=== PATIENT | female | born 1970 | race Caucasian/White ===

== ENCOUNTER → 2018-07-25 15:34 | Outpatient (CLI) | payer OTHER, SELFPAY ==
--- NOTE | 2018-07-25 | DI.MG.S_ITS ---
BILATERAL DIGITAL SCREENING MAMMOGRAM 3D/2D WITH CAD: 07/25/2018 CLINICAL: Routine screening. Family history of breast cancer. Comparison is made to exams dated: 07/15/2017 mammogram, 07/11/2016 mammogram, and 07/09/2015 mammogram - [facility]. The tissue of both breasts is extremely dense, which lowers the sensitivity of mammography. Current study was also evaluated with a Computer Aided Detection (CAD) system. No significant masses, calcifications, or other findings are seen in either breast. There has been no significant interval change. IMPRESSION: NEGATIVE There is no mammographic evidence of malignancy. A 1 year screening mammogram is recommended. This exam was interpreted at Station ID: [id number]. NOTE: For mammograms, a report in lay terms will be sent to the patient. Approximately 15% of breast malignancies will not be visualized mammographically. In the management of a palpable breast mass, a negative mammogram must not discourage biopsy of a clinically suspicious lesion. Electronically Signed By: Lacey garcia/dony:07/25/2018 17:01:51 letter sent: Normal Exam ACR BI-RADS Category 1: Negative 3341F
== END ==
PROVIDERS: PCP Internal Medicine; Visit Provider Internal Medicine
DX: Z12.31 Encounter for screening mammogram for malignant neoplasm of breast (principal); Z80.3 Family history of malignant neoplasm of breast
CPT/HCPCS: 77063; 77067

== ENCOUNTER → 2019-12-28 08:58 | Outpatient (CLI) | payer OTHER, SELFPAY ==
--- NOTE | 2019-12-28 | DI.MG.S_ITS ---
BILATERAL DIGITAL SCREENING MAMMOGRAM 3D/2D WITH CAD: 12/28/2019 CLINICAL: Routine screening. Family history of breast cancer. Comparison is made to exams dated: 07/25/2018 mammogram, 07/15/2017 mammogram, and 07/11/2016 mammogram - [facility]. The tissue of both breasts is extremely dense, which lowers the sensitivity of mammography. Current study was also evaluated with a Computer Aided Detection (CAD) system. No significant masses, calcifications, or other findings are seen in either breast. There has been no significant interval change. IMPRESSION: NEGATIVE There is no mammographic evidence of malignancy. A 1 year screening mammogram is recommended. This exam was interpreted at Station ID: [id number]. NOTE: For mammograms, a report in lay terms will be sent to the patient. Approximately 15% of breast malignancies will not be visualized mammographically. In the management of a palpable breast mass, a negative mammogram must not discourage biopsy of a clinically suspicious lesion. Electronically Signed By: Damaso anglin/dony:12/30/2019 08:43:51 letter sent: Normal Exam ACR BI-RADS Category 1: Negative 3341F
== END ==
PROVIDERS: PCP Internal Medicine; Referring Provider Internal Medicine; Visit Provider Internal Medicine
DX: Z12.31 Encounter for screening mammogram for malignant neoplasm of breast (principal); Z80.3 Family history of malignant neoplasm of breast
CPT/HCPCS: 77063; 77067

== ENCOUNTER → 2021-01-02 08:22 | Outpatient (CLI) | payer OTHER, SELFPAY ==
--- NOTE | 2021-01-02 | DI.MG.S_ITS ---
BILATERAL DIGITAL SCREENING MAMMOGRAM 3D/2D WITH CAD: 01/02/2021 CLINICAL: Routine screening. Family history of breast cancer. Comparison is made to exams dated: 12/28/2019 mammogram, 07/25/2018 mammogram, and 07/15/2017 mammogram - [facility]. The tissue of both breasts is extremely dense, which lowers the sensitivity of mammography. Current study was also evaluated with a Computer Aided Detection (CAD) system. No significant masses, calcifications, or other findings are seen in either breast. There has been no significant interval change. IMPRESSION: NEGATIVE There is no mammographic evidence of malignancy. A 1 year screening mammogram is recommended. This exam was interpreted at Station ID: [id number]. NOTE: For mammograms, a report in lay terms will be sent to the patient. Approximately 15% of breast malignancies will not be visualized mammographically. In the management of a palpable breast mass, a negative mammogram must not discourage biopsy of a clinically suspicious lesion. Electronically Signed By: Aidan márquez/dony:01/04/2021 08:17:06 letter sent: Normal Exam ACR BI-RADS Category 1: Negative 3341F
== END ==
PROVIDERS: PCP Internal Medicine; Referring Provider Internal Medicine; Visit Provider Internal Medicine
DX: Z12.31 Encounter for screening mammogram for malignant neoplasm of breast (principal); Z80.3 Family history of malignant neoplasm of breast
CPT/HCPCS: 77063; 77067

== ENCOUNTER 2021-12-17 04:41 | Emergency (ER) | payer OTHER, SELFPAY ==
--- NOTE | 2021-12-17 04:39 | DI.CT.S_ITS ---
PROCEDURE: CT STROKE INDICATIONS: stroke with right sided weakness TECHNIQUE: Noncontrast 4.5 mm thick angled axial sections acquired from the foramen magnum to the vertex, with coronal reformats. For radiation dose reduction, the following was used: automated exposure control, adjustment of mA and/or kV according to patient size. COMPARISON: None. FINDINGS: Image quality: Excellent. CSF spaces: Basal cisterns are patent. No extra-axial fluid collections. Ventricles are normal in size and shape. Brain: Subtle hypodensity and loss of bautista white interface in the left temporal lobe involving the insula cortex. No midline shift. No intracranial masses or hemorrhage. Bautista-white matter interface is normal. Skull and face: Calvarium and visualized facial bones are intact, without suspicious lesions. Sinuses: Visualized sinuses and mastoids are clear. IMPRESSION: 1. Subtle hypodensity and loss of bautista-white interface in the left temporal lobe suspicious for acute/subacute infarct. No significant discrepancy with the shift supervisor rn radiology preliminary report. This study fulfills neurological imaging criteria for inclusion or exclusion of acute stroke therapies based on available published neurological imaging guidelines. Dictated by: Krish Boss M.D. on 12/17/2021 at 7:34 Approved by: Krish Boss M.D. on 12/17/2021 at 7:36
--- NOTE | 2021-12-17 04:39 | DI.CT.S_ITS ---
PROCEDURE: CT ANGIO HEAD AND NECK INDICATIONS: stroke with right sided weakness TECHNIQUE: After the administration of intravenous contrast, 1 mm thick sections acquired from the aortic arch through the [place] of [place]. Post-contrast 4.5 mm thick sections then re-acquired from the foramen magnum to the vertex. 3-dimensional qirdfsr-mqerhxyxj-bvcdnenkdh (MIP) and/or volume rendering reformats were acquired of the central intracranial vasculature and neck separately. For radiation dose reduction, the following was used: automated exposure control, adjustment of mA and/or kV according to patient size. COMPARISON: [facility], US, CAROTID ARTERY DOPPLER BILAT, 02/02/2016, 15:38. [facility], CT, CT STROKE, 12/17/2021, 4:51. FINDINGS: Image quality: Excellent. BRAIN: CSF spaces: Ventricles are normal in size and shape. Basal cisterns are patent. No extra-axial fluid collections. Brain: Hypodensity and loss of butterfield-white interface in the left temporoparietal lobe consistent with acute or subacute ischemia/infarct. No midline shift. No intracranial bleeds or masses. Skull and face: Calvarium and facial bones appear intact, without suspicious lesions. Orbits appear normal. Sinuses: Sinuses and mastoids are clear. HEAD CT ANGIOGRAPHY: Anterior circulation: Intracranial internal carotid arteries are normal in size and flow. The flow within the paired anterior cerebral arteries is normal and symmetric. There is segmental filling defect in the M1 segment of the left middle cerebral artery, suspicious for high-grade stenosis or occlusion. There is overall diminished flow in the left MCA distribution. The flow within the right middle cerebral artery is normal. The anterior communicating artery is seen. No aneurysms are seen. Posterior circulation: Visualized portions of the vertebral arteries demonstrate normal caliber, and join to form a normal appearing basilar artery. Flow within the posterior cerebral arteries is normal and symmetric. No aneurysms are seen. NECK CT ANGIOGRAPHY: Carotid system: The great vessels demonstrate a conventional anatomy as they arise from the aortic arch. The origins of the common carotid arteries appear patent. The common carotid arteries demonstrate normal caliber and courses. Calcified plaques at the carotid bifurcation regions bilaterally. 50% stenosis at origin of the left internal carotid artery; 30-40% stenosis at the right internal carotid artery origin. The internal carotid arteries demonstrate normal calibers and courses. Posterior circulation: The origins of the vertebral arteries both appear widely patent. The more superior extracranial portions of both vertebral arteries also demonstrate normal courses and calibers. They join to form a normal appearing basilar artery. Soft tissues: Visualized neck soft tissues demonstrate no suspicious abnormalities. Bones: No suspicious bony lesions. Moderate degenerative disc and facet disease in cervical spine. IMPRESSION: 1. Acute or subacute cerebral ischemia/infarct in the left temporoparietal lobe. 2. Suspect high-grade stenosis or occlusion of a short segment of left M1 segment of the middle cerebral artery. There is diminished flow in the left middle cerebral artery territory. 3. 50% stenosis at origin of the left internal carotid artery; 40% stenosis at origin of the right internal carotid artery origin. 4. No significant disease in cervical vertebral arteries. Any quantitative measurements of stenosis were performed using NASCET criteria. Dictated by: Krish Boss M.D. on 12/17/2021 at 7:38 Approved by: Krish Boss M.D. on 12/17/2021 at 8:46
--- NOTE | 2021-12-17 04:45 | ED.NEUROSD ---
HPI - Neuro Symptoms/Deficit General Chief Complaint: Neuro Symptoms/Deficit Stated Complaint: Stroke Time Seen by Provider: 12/17/21 04:44 History of Present Illness HPI Narrative: 51-year-old female nonsmoker with history of hypertension presents by EMS for evaluation of stroke-like symptoms. She was in her normal state of health when she went to bed at 9:30 p.m. and presents to the emergency department by EMS with significant neurologic symptoms. states he heard a thud and found her on the floor, unresponsive and unable to move her right side of her body. This was at about 4am today. She takes no blood thinners, is not a smoker does not drink alcohol. EMS reports blood sugar in the field 122 with stable vitals. She is activated as a code IR and taken directly to CT. Related Data Home Medications Medication Instructions Recorded Confirmed hydrochlorothiazide 25 mg tablet 25 mg PO DAILY 10/14/21 10/14/21 sertraline 150 mg capsule 75 mg PO DAILY 10/14/21 10/14/21 Previous Rx's Medication Instructions Recorded fluticasone propionate 50 1 spray intranasal QDAY ##1 08/07/17 mcg/actuation nasal spray,suspension (Flonase Allergy Relief) Allergies Allergy/AdvReac Type Severity Reaction Status Date / Time No Known Allergies Allergy Uncoded 10/14/21 10:13 Review of Systems Review of Systems ROS Unobtainable: Unobtainable due to mental status/LOC Patient History Medical History Herpes (~1994) Surgical History Melanoma (~2014) Family History Father Age: 78 Colon polyps Mother Cancer Hypertension Sister Age: 56 Breast cancer Sister Age: 46 Endometriosis Grandmother No problems noted. Social History Smoking Status: Current some day smoker Smoking Status: Current some day smoker (1 pk per day, for about 25 yrs) Exam Narrative Exam Narrative: GENERAL: [51] year old patient appears stated age. Well-developed patient, in obvious distress. GCS HEAD: Atraumatic. Normocephalic. EYES: Pupils equal round and reactive. Extraocular motions intact. No scleral icterus. No injection or drainage. ENT: Nose without bleeding, purulent drainage. Throat without erythema, tonsillar hypertrophy or exudate. Airway patent. NECK: Trachea midline. Non tender CARDIOVASCULAR: Regular rate and rhythm without murmurs, gallops, or rubs. RESPIRATORY: Clear to auscultation. Breath sounds equal bilaterally. No wheezes, rales, or rhonchi. GASTROINTESTINAL: Abdomen soft, non-tender, nondistended. EXTREMITIES: No edema or joint tenderness. BACK: Nontender without deformity or crepitance. No flank tenderness. NEURO: AOx3. SKIN: No rash or erythema of visible areas Initial Vital Signs Initial Vital Signs: Vital Signs Temperature 97.6 F 12/17/21 04:57 Pulse Rate 74 12/17/21 04:57 Respiratory Rate 16 12/17/21 04:57 Blood Pressure 153/97 H 12/17/21 04:57 Pulse Oximetry 99 12/17/21 04:57 Oxygen Delivery Method 12/17/21 04:57 Scores GCS Carroll coma scale eye opening: Spontaneous Carroll coma scale verbal response: Sounds [place] coma scale motor response: Localising Carroll coma scale total score: 11 NIH Stroke Scale Level of Conciousness: Not alert, but arousable by minor stim to obey, answer or respond Ask month/age: Answers neither question correctly, aphasic, stuporous, coma Open/close eyes, close hand: Performs neither task correctly Best gaze horizontal: Normal Visual rivero: No visual loss Facial palsy: Partial paralysis, total or near total paralysis of lower face Left arm drift: No drift for full 10 sec Right arm drift: Some effort against gravity, cannot maintain, drifts down to bed Left leg drift: No drift for full 5 sec Right leg drift: No effort against gravity Limb ataxia: Absent Sensory on face/arms/legs: Mild to moderate sensory loss, can tell touch Best language: Mute, global aphasia Dysarthria: Severe, unintelligible Extinction or inattention: Profound kp-inattention. Does not recognize own hand, one side Total NIH Stroke scale score: 20 Course Orders Ordered: ED Orders 12/17/21 04:[address] angio head and neck Stat Complete Blood Count AUTO DIFF Stat Comprehensive Metabolic Panel Stat Ethanol (ETOH) Stat Troponin & CK Cardiac Panel Stat Urine Drug Screen, Rapid Stat EKG-12 Lead Stat Sodium Chloride (Normal Saline 0.9%) 1,000 mls @ 150 mls/hr IV CONT JACQUIE Consultations Consultation #1: [id number] -discussion with stroke provider, Dr. Davis, she is in agreement that at this point patient meets criteria for CODE IR and is waiting to review CTA. 0515 - call back from Dr. Davis. She has reviewed imaging and notes findings consistent with large stroke and requests patient be sent to [facility] by air, but does state she may very well not receive intervention given significant changes already noted on imaging. I have relayed this to the patient's who understands and agrees with the plan. [facility] doing weather check and likely here in 27 minutes. Vital Signs Vital signs: Vital Signs - 8 hr 12/17/21 04:57 12/17/21 05:25 12/17/21 05:30 Temperature 97.6 F Pulse Rate 74 72 Respiratory Rate 16 17 Blood Pressure 153/97 H 139/92 H Pulse Oximetry 99 97 Oxygen Delivery Method Room Air 12/17/21 05:30 12/17/21 05:10 Temperature Pulse Rate 73 74 Respiratory Rate 17 20 Blood Pressure 142/90 H Pulse Oximetry 97 98 Oxygen Delivery Method MDM - Neuro Symptoms/Deficit Lab Data Result diagrams: 12/17/21 04:30 12/17/21 04:30 Labs: Lab Results 12/17/21 12/17/21 Range/Units 04:30 04:30 WBC 15.9 H (4.5-11.0) X10^3/uL RBC 4.52 (4.0-5.2) X10^6/uL Hgb 14.2 (12.0-16.0) g/dL Hct 41.3 (36-46) % MCV 91.3 (80-100) fL MCH 31.5 (26-34) PG MCHC 34.5 (30-36) % RDW 13.5 (11.6-14.8) % Plt Count 308 (150-400) X10^3/uL Neut % (Auto) 85.7 H (50-75) % Lymph % (Auto) 7.9 L (25-40) % Sunflower % (Auto) 5.0 (3-14) % Eos % (Auto) 0.4 L (2-4) % Baso % (Auto) 1.0 (0-2) % Neut # (Auto) 41157 H (7966-3279) /uL Lymph # (Auto) 1300 (7195-0231) /uL Sunflower # (Auto) 800 (0-900) /uL Eos # (Auto) 100 (0-450) /uL Baso # (Auto) 200 H (0-100) /uL Sodium 139 (137-145) mmol/L Potassium 4.0 (3.4-5.1) mmol/L Chloride 104 (98-107) mmol/L Carbon Dioxide 26 (22-32) mmol/L BUN 17 (7-17) mg/dL Creatinine 0.76 (0.52-1.04) mg/dL Estimated GFR > 60 (>60) mL/min BUN/Creatinine Ratio 22.4 H (6-22) Glucose 124 H (70-100) mg/dL Calcium 9.0 (8.4-10.2) mg/dL Total Bilirubin 0.4 (0.2-1.3) mg/dL AST 22 (14-36) IU/L ALT 14 (<35) IU/L Alkaline Phosphatase 72 (38-126) U/L Total Creatine Kinase 91 (30-135) U/L CK-MB (CK-2) TNP CK-MB (CK-2) Rel Index TNP Troponin I < 0.012 (0.01-0.034) ng/mL Total Protein 7.2 (6.3-8.2) g/dL Albumin 4.1 (3.5-5.0) g/dL Globulin 3.1 (1.7-4.1) g/dL Albumin/Globulin Ratio 1.3 (1.0-2.8) Ethyl Alcohol < 10 ( - 10) mg/dL Imaging Data CT scan - head: Radiologist's Impression: Blurring of the butterfield-white cortical interfaces with left temporoparietal regions compatible with ischemic infarct CTA - brain/neck: Radiologist's Impression: No significant stenosis or occlusion of the right or left internal carotid and vertebral arteries MDM Narrative Medical decision making narrative: 0530 - [facility] cannot [facility] due to weather. They are checking availability for fixed wing, but recommend we begin calls for ground transport. 0548 - [facility] sending fixed wing. Multiple calls to Ambulance, put on hold, no ability to speak to a person. At this time, decision made to activate [employer] for STAT transfer by ground from our ED to meet fixed [facility]. Stroke Core Measures Exclusion Criteria TPA in CVA: Symptom Onset >3 or 4.5 Hours Critical Care Time Critical Care Time Critical Care Time: Yes Total Critical Care Time: 30 Attestation: The high probability of a clinically significant, sudden or life threatening deterioration of the [NV] system(s) required my full and direct attention, intervention and personal management. The aggregate critical care time was [30] minutes. This time is in addition to time spent performing reported procedures but includes the following: [x] Data Review and interpretation [x] Patient assessment and monitoring of vital signs [x] Documentation [x] Medication orders and management Discharge Plan Departure Patient Disposition: [facility] Clinical Impression: Acute ischemic stroke Prescriptions: No Action fluticasone propionate [Flonase Allergy Relief] 50 mcg/actuation spray,suspension 1 spray Intranasal QDAY Qty: 1 5RF Rx Instructions: 1 spray each nostril once a day sertraline 150 mg capsule 75 mg PO DAILY hydrochlorothiazide 25 mg tablet 25 mg PO DAILY Referrals: Jannie José ARNP [Primary Care Provider] -
[2021-12-17 04:57] VITALS: BP 153/97; PULSE 74; RESP 16; TEMP 36.4; O2SAT 99; BMI 29.9
[2021-12-17 04:59] LABS: Add Manual Diff / Slide Review NO; Basophils Absolute Auto 200 /uL (0-100); Eosinophils Absolute Auto 100 /uL (0-450); Eosinophils Percent Auto 0.4 % (2-4); Hematocrit 41.3 % (36-46); Hemoglobin 14.2 g/dL (12.0-16.0); Lymphocytes Absolute Auto 1300 /uL (1100-4500); Lymphocytes Percent Auto 7.9 % (25-40); Mean Corpuscular HGB Conc 34.5 % (30-36); Mean Corpuscular Hemoglobin 31.5 PG (26-34); Mean Corpuscular Volume 91.3 fL (80-100); Monocytes Absolute Auto 800 /uL (0-900); Neutrophils Absolute Auto 13600 /uL (1500-7000); Neutrophils Percent Auto 85.7 % (50-75); Platelet Count 308 X10^3/uL (150-400); Red Blood Cell Count 4.52 X10^6/uL (4.0-5.2); Red Cell Distribution Width 13.5 % (11.6-14.8); White Blood Cell Count 15.9 X10^3/uL (4.5-11.0)
[2021-12-17 05:10] VITALS: BP 142/90; PULSE 74; RESP 20; O2SAT 98
[2021-12-17 05:12] LABS: Alanine Aminotransferase 14 IU/L (<35); Albumin 4.1 g/dL (3.5-5.0); Albumin Globulin Ratio 1.3 (1.0-2.8); Alkaline Phosphatase 72 U/L (38-126); Aspartate Aminotransferase 22 IU/L (14-36); BUN Creatinine Ratio 22.4 (6-22); Bilirubin Total 0.4 mg/dL (0.2-1.3); Blood Urea Nitrogen 17 mg/dL (7-17); Carbon Dioxide 26 mmol/L (22-32); Chloride 104 mmol/L (98-107); Creatine Kinase 91 U/L (30-135); Estimated Glomerular Filt Rate > 60 mL/min (>60); Ethanol (ETOH) < 10 mg/dL; Globulin 3.1 g/dL (1.7-4.1); Glucose 124 mg/dL (70-100); HEMOLYSIS 32 (0-50); Sodium 139 mmol/L (137-145); Total Protein 7.2 g/dL (6.3-8.2)
[2021-12-17 05:23] LABS: Troponin I < 0.012 ng/mL (0.01-0.034)
[2021-12-17 05:25] VITALS: PULSE 72; RESP 17; O2SAT 97
[2021-12-17 05:30] VITALS: BP 139/92; PULSE 73; RESP 17; O2SAT 97
[2021-12-17 05:59] VITALS: PULSE 75; RESP 30; O2SAT 93
[2021-12-17 06:00] VITALS: BP 152/95
[2021-12-17 06:39] LABS: COVID19 -Nasal RAPID Negative (Negative)
== END 2021-12-17 06:04 | disposition short-term general hospital (02) ==
PROVIDERS: Emergency Provider Emergency Medicine; PCP Internal Medicine
DX: I63.9 Cerebral infarction, unspecified (principal); Z20.822 Contact with and (suspected) exposure to COVID-19
CPT/HCPCS: 36415; 70450; 70496; 70498; 80053; 80320; 82550; 84484; 85025; 87635; 93005; 93010; 99284; 99291; C9803; Q9967

== ENCOUNTER 2022-07-04 10:00 | Outpatient (RCR) | payer OTHER, SELFPAY ==
--- NOTE | 2022-02-14 12:19 | ST.OP.ACL ---
Visit Care Team Role Provider Type VENKATA Frey Family Provider Advanced Hydraulic Chair Assembler Primary Care Provider Specialty: Family Practice Address: [address] [place] [address], [facility], [place], [address] Email: [email or web address] Jacinta Diggs MD Attending Provider Non-Staff Referring Provider Specialty: Medical Address: [address] [place], [address] Email: Adult Cognitive Linguistic Evaluation PUBLIC HEALTH ADVISOR Adult Cognitive Linguistic Eval Start: 02/14/22 11:40 Freq: Status: Active Protocol: Document 02/14/22 11:40 ZS (Rec: 02/14/22 12:19 ZS [id number]) Adult Cognitive Linguistic Evaluation Session Time Visit Start Time 10:30 Visit Stop Time 11:20 Total Visit Minutes 50 Visit Information Visit Number Initial Evaluation Plan of Care Dates 02/14/2022 - 06/03/2022 Insurance Information [employer] Referral Referring Provider Dr. Diggs Reason for Referral Communication/speech difficulties following stroke Setting Assessment Location Outpatient Care Visit Type Note Type Initial evaluation Next Note Type Next Note Type Treatment Note Patient Information Identification Type Name Patient History Per [facility] Hx: Diana is a 51-year old female with a history of HTN, depression, and anxiety, admitted to [facility] on 12/17 as a stroke code with R hemiparesis and aphasia found to have L M1 occlusion/large L MCA stroke c /b edema with midline shift s/ p left crani on 12/19. She was admitted on 12/16 after she was found down at home by her . Per report, he found her not able to speak and now moving her right side. Patient was taken to [facility] about 7.5 hours after LKN. CTA with minimal calcified left carotid bulb with flow and left M1 occlusion. She reportedly presented with R hemiplegia, neglect, and aphasia with NIHSS 20. CT head showed with large L MCA infarct. She was transferred to [facility] for repeat CT/CTP and possible consideration of thrombectomy. Repeat CTA/CTP redemonstrated acute left MCA distribution infarct with aspect score 2, mildly progressed when compared with CT from outside hospital, mild 3mm rightward midline shift. Patient was out of temporal window for thrombolytic therapy and her ASPECTS score predluded consideration of thrombectomy. She was admitted to [facility] for close monitoring given high risk of malignant L MCA syndrome. Her CTA shows only mild calcified plaque at L carotid bulb. Stroke etiology is cryptogenic but most concerning for embolic phenomenon. Hospital course complicated by decompensation with difficulty with arousability on 12/19, repeat head CT showed marked progression of her malignant MCA edema with substantial MLS and effacement of the midbrain on the left. Patient underwent emergent left craniectomy without intraoperative complications. MRI brain completed on 12/26 showed patchy areas of necrosis in the MCA territory. P&O provided PRAFO for right ankle. VFSS was completed and pt started on a regular diet with mildly thick liquids. TCDS were without shunt, TE normal, labs normal. Hypercoagulability labs are pending for finishing stroke workup. Language(s) Spoken in the Home Ensligh Education Level Masters Hearing Hearing Level Normal Vision Vision Status Not Impaired Previous Therapy Previous Speech-Language Therapy Yes History of Therapy Pt received speech therapy to treat acute mild dysphagia following stroke. Per history: Patient presents with impaired swallow safety d/t reduced laryngeal vestibule closure and delayed epiglottic retroflexion resulting in aspiration of thin liquids during the swallow; pt was sensate. However, pt with coughing throughout the exam with no aspiration/penetration was present. Coughing unreliable means of determining airway invasion at the bedside, will likely require a repeat VFSS to upgrade liquid diet. Pt with no evidence of airway invasion with all mildly thick liquid and solid trials. Per family, Diana is on a regular diet with thin liquids at this time per previous PUBLIC HEALTH ADVISOR recommendations. Subjective Patient Report Diana arrived on time accompanied by her and sister, who were present for the session. Diana spoke minimally due to severe aphasia and and sister spoke on her behalf. They reported Diana's primary goal for therapy is to communicate more effectively, as she is currently limited to inconsistently accurate y/n answers. stated Diana understands everything, but is unable to communicate, often using words like itzel or people to mean other things. Sister added pt will also say penis a lot when trying to communicate. Family stated yes /no responses are mostly accurate, though Diana will sometimes get confused and say yes when she means no, or vice versa. reported Diana will sometimes catch herself doing this and revise her answer. Family would like more ease in communication as it primarily consists of pointing and asking a series of y/n questions to determine what Diana's wants and needs are. They added Diana has a communication book at home from her previous PUBLIC HEALTH ADVISOR, but use of this is limited. Family has been working with Diana on writing, though Diana is right handed and she is experiencing R hemiparesis, which currently eliminates use of right hand. Assessment Oral Motor Examination Completed Yes Results Completed OME with pt. She exhibited symmetrical external features at rest. Mild R weakness noted in smile and L weakness noted in tongue at rest. In motion, tongue was symmetrical with strength and ROM WNL. Difficulty with pucker of lips, despite verbal instructions and a complete visual model. Pt required complete visual model for all OME tasks as well as imitating sounds. Did not complete DDK task during the session today as pt exhibited extreme difficulty with single sounds and was unable to speak written words aloud. She indicated she understood the instructions, but was experiencing difficulty with motor movements. Given a step- by-step breakdown of articulator positioning and a complete visual model, pt imitated /s/ in 2/5 trials, /b / in 1/1 trial, and /m/ in 1/2 trials. Difficulty observed with voicing, as /b/ approximated /p/. When additional sound was added (e. g., /alcantara/ vs /s/), pt exhibited extreme difficulty, often unable to approximate original sound (e.g., /s/) or add additional sound. Findings/Results Language Function Severely impaired Findings Pt presents with severely impaired expressive language, secondary to motor speech impairment following stroke. She exhibited difficulty following directions as well, though it is unclear if this is related to cognitive impairment or motor coordination of movement required to follow directions. Her y/n responses are mostly reliable, though difficulty observed when presented with complex questions. Discussed target of individual speech sounds to improve verbal communication in addition to exploring AAC options to increase Diana's ability to communicate wants and needs. Family stated Diana does not currently use her communication book at home and has expressed disinterest in using it when presented with the option. Additionally, stated Diana is often confused when presented with choices and he has noticed increased unreliability in y/n responses in these situations . Discussed attempting concrete choices with visual element (e.g., visual choices between 2 items with pointing as response) and bringing communication book in next session to determine possible barriers for use of tool. Family to practice articulatory placement and production of /s, p, b, m/. Recommend speech therapy to increase Diana's expressive language and communicative options to improve her ability to communicate wants and needs, especially in emergency situations. Impact on Functioning Activity Limits/Particip.Rest. Mod: Community Sev: General Tasks and Demands Household Tasks Interpersonal Interactions Education Employment Prognosis Prognosis Fair Based on Cognitive status,Family support,Duration of symptoms/ severity,Time since onset Plan of Care Speech-Language Treatment Yes Frequency 2x per week Duration 45 minutes Patient/Caregiver Education Described results of evaluation,Patient expressed understanding of evaluation, Patient expressed agreement with goals and treatment plans ,Family/caregivers expressed understanding of evaluation, Family/caregivers expressed agreement with goals and treatment plan,Patient requires further education/ training,Family/caregivers require further education/ training Short Term Goals 1. Diana will produce /s, p, b, m/ with 100% accuracy given no model across 2 sessions. 2. Diana will determine AAC technique (e.g., communication book, writing, typing, choices, etc.) to increase communicative ability and use the technique across a variety of communication settings, as reported by family and observed by PUBLIC HEALTH ADVISOR. Nuclear Fuel Processing Technician Goals Diana will communicate using total communication (e.g., AAC , verbal communication, gestures, etc.) to express her wants and needs, as reported by pt, family, and observed by PUBLIC HEALTH ADVISOR.
--- NOTE | 2022-02-14 12:20 | ST.OPPOC ---
Physical, Occupational & Speech Therapy At [facility] Visit Care Team Role Provider Type VENKATA Frey Family Provider Advanced Vehicle Leasing And Rental Manager Primary Care Provider Address: [facility], [address], [place], [address] Jacinta Diggs MD Attending Provider Non-Staff Referring Provider Address: [address] [place], [address] Speech Pathology Plan of Care Plan of Care Dates 02/14/2022 - 06/03/[address] Diggs Patient History Per [facility] Hx: Diana is a 51- year old female with a history of HTN, depression, and anxiety, admitted to [facility] on 12/17 as a stroke code with R hemiparesis and aphasia found to have L M1 occlusion/large L MCA stroke c/b edema with midline shift s/p left crani on 12/19. She was admitted on 12/16 after she was found down at home by her . Per report, he found her not able to speak and now moving her right side. Patient was taken to [facility] about 7.5 hours after LKN. CTA with minimal calcified left carotid bulb with flow and left M1 occlusion. She reportedly presented with R hemiplegia, neglect, and aphasia with NIHSS 20. CT head showed with large L MCA infarct. She was transferred to [facility] for repeat CT/CTP and possible consideration of thrombectomy. Repeat CTA/CTP re-demonstrated acute left MCA distribution infarct with aspect score 2, mildly progressed when compared with CT from outside hospital, mild 3mm rightward midline shift. Patient was out of temporal window for thrombolytic therapy and her ASPECTS score precluded consideration of thrombectomy. She was admitted to [facility] for close monitoring given high risk of malignant L MCA syndrome. Her CTA shows only mild calcified plaque at L carotid bulb. Stroke etiology is cryptogenic but most concerning for embolic phenomenon. Hospital course complicated by decompensation with difficulty with arousability on 12/19, repeat head CT showed marked progression of her malignant MCA edema with substantial MLS and effacement of the midbrain on the left. Patient underwent emergent left craniectomy without intraoperative complications. MRI brain completed on 12/26 showed patchy areas of necrosis in the MCA territory. P&O provided PRAFO for right ankle. VFSS was completed 12/24 and pt started on a regular diet with mildly thick liquids. TCDS were without shunt, TE normal, labs normal. Hypercoagulability labs are pending for finishing stroke workup. Short Term Goals 1. Diana will produce /s, p, b, m/ with 100% accuracy given no model across 2 sessions. 2. Diana will determine AAC technique (e.g., communication book, writing, typing, choices, etc.) to increase communicative ability and use the technique across a variety of communication settings, as reported by family and observed by AUTOMOTIVE SERVICE TECHNICIAN. Ager Operator Goals Diana will communicate using total communication (e.g., AAC, verbal communication, gestures, etc. ) to express her wants and needs, as reported by pt, family, and observed by AUTOMOTIVE SERVICE TECHNICIAN. Comment: Electronically Signed by: CHRISTIANNE Winn 02/14/22 7725 If you are in agreement with this Plan of Care, please return a signed and dated copy. I have reviewed this Plan of Care and certify that the skilled therapy services above are required to meet the patient?s needs. Physician Signature Date Printed Name and Credentials Clinical Instructor Signature Printed Name and Credentials
--- NOTE | 2022-03-04 10:23 | ST.OPTN ---
Visit Care Team Role Provider Type VENKATA Frey Family Provider Advanced Senior Counsel Primary Care Provider Address: [address] [place] [address], [address], [place], [address] Jacinta Diggs MD Attending Provider Non-Staff Referring Provider Address: [address] [place], [address] LOCAL GOVERNMENT LEGISLATOR Treatment Note LOCAL GOVERNMENT LEGISLATOR Treatment Note Start: 03/04/22 10:11 Freq: Status: Active Protocol: Document 03/04/22 10:11 ZS (Rec: 03/04/22 10:22 ZS [id number]) Speech Pathology Treatment Note Session Time Visit Start Time 09:30 Visit Stop Time 10:15 Total Visit Minutes 45 Visit Information Visit Number 1 Plan of Care Dates 02/14/2022 - 06/03/2022 Insurance Information [employer] Setting Treatment Setting Outpatient Care Visit Type Note Type Treatment Note Next Note Type Next Note Type Treatment Note General Information Patient History Per [facility] Hx: Diana is a 51-year old female with a history of HTN, depression, and anxiety, admitted to [facility] on 12/17 as a stroke code with R hemiparesis and aphasia found to have L M1 occlusion/large L MCA stroke c /b edema with midline shift s/ p left crani on 12/19. Pt received speech therapy to treat acute mild dysphagia following stroke. Per history: Patient presents with impaired swallow safety d/t reduced laryngeal vestibule closure and delayed epiglottic retroflexion resulting in aspiration of thin liquids during the swallow; pt was sensate. However, pt with coughing throughout the exam with no aspiration/penetration was present. Coughing unreliable means of determining airway invasion at the bedside, will likely require a repeat VFSS to upgrade liquid diet. Pt with no evidence of airway invasion with all mildly thick liquid and solid trials. Per family, Diana is on a regular diet with thin liquids at this time per previous LOCAL GOVERNMENT LEGISLATOR recommendations. Diana presents with severe expressive aphasia. They reported Diana's primary goal for therapy is to communicate more effectively, as she is currently limited to inconsistently accurate y/n answers. stated Diana understands everything, but is unable to communicate, often using words like itzel or people to mean other things. Sister added pt will also say penis a lot when trying to communicate. Family stated yes /no responses are mostly accurate, though Diana will sometimes get confused and say yes when she means no, or vice versa. reported Diana will sometimes catch herself doing this and revise her answer. Family would like more ease in communication as it primarily consists of pointing and asking a series of y/n questions to determine what Diana's wants and needs are. They added Diana has a communication book at home from her previous LOCAL GOVERNMENT LEGISLATOR, but use of this is limited. Family has been working with Diana on writing, though Diana is right handed and she is experiencing R hemiparesis, which currently eliminates use of right hand. Subjective Identification Type Name Identification Reconciled With Medical Record Others Present Family Observations/Patient Presentation Diana arrived on time accompanied by her , who was present for the session. They brought Diana's communication book for review, but reiterated they are not currently using it to communicate at home. Chief Complaint(s) Speech,Language Objective Short Term Goals 1. Diana will produce /s, p, b, m/ with 100% accuracy given no model across 2 sessions. 2. Diana will determine AAC technique (e.g., communication book, writing, typing, choices, etc.) to increase communicative ability and use the technique across a variety of communication settings, as reported by family and observed by LOCAL GOVERNMENT LEGISLATOR. Home School Teacher Goals Diana will communicate using total communication (e.g., AAC , verbal communication, gestures, etc.) to express her wants and needs, as reported by pt, family, and observed by LOCAL GOVERNMENT LEGISLATOR. Treatment Activities Reviewed Diana's AAC book to determine where communication support is effective and ineffective. Practiced imitating sounds /b, s, m, p/. Practiced imitating mouth movements. Discussed home practice: imitate a variety of mouth movements x5 for each ( smile, pucker, tongue out, tongue lateralization). Assessment Patient Response to Treatment Good Impairments Identified Expressive language Progress Towards Goals Slow Progress Assessment of Overall Progress Improving Assessment of Improvement Family indicated Diana communicates primarily by pointing and showing contacts on her phone. Current communication tools are effective for communicating with familiar individuals as well as strangers. Family would like a way to communicate cause of feelings more effectively and in depth as this is currently a limitation. Diana said see when asked to imitate /s/ and people when asked to imitate /p/. Productions started with target sound in about 80% of trials, though pt was unable to isolate one sound. Limited success noted with non-word imitation and replacing sounds in words with other sounds (e .g., changing /p/ to /m/ in people). Diana modified people to meople x2 and parents to marents x2. She produced /m/ with 3 different vowel sounds following initial /m/ though exhibited difficulty in producing target sounds, instead repeating people or parents today. Targeted imitation of mouth movements such as smiling, puckering, and sticking tongue out. Diana exhibited initial difficulty when a new movement was presented and was observed to guide her lips to the correct position with her fingers. Once she achieved the correct position, repeating it appeared easier. Home practice: hold position and relax x5 for each movement - smile, pucker, tongue out, tongue laterally. Family can expand to other mouth movements with same format if desired. Reviewed with Patient Goals,Progress Being Made,Home Exercise Program Patient/Caregiver Understanding Excellent Plan Amount of Therapy Recommended 6 Months Frequency of Treatment Once a Week Length of Session 45 Minutes Therapeutic Contents Articulation Training,AAC, Client Education,Home Exercise Program,Oral Motor Training Provided Patient/Caregiver Instruction Home Exercise Program,Plan of Care,Questions/Concerns Therapy Recommendations Continue with Current Program
--- NOTE | 2022-03-22 11:27 | ST.OPTN ---
Visit Care Team Role Provider Type VENKATA Frey Family Provider Advanced Lead Web Developer Primary Care Provider Address: [address] [place] [address], [address], [place], [address] Jacinta Diggs MD Attending Provider Non-Staff Referring Provider Address: [address] [place], [address] POLICYHOLDER INFORMATION CLERK Treatment Note POLICYHOLDER INFORMATION CLERK Treatment Note Start: 03/04/22 10:11 Freq: Status: Active Protocol: Document 03/22/22 11:21 ZS (Rec: 03/22/22 11:27 ZS [id number]) Speech Pathology Treatment Note Session Time Visit Start Time 10:30 Visit Stop Time 11:20 Total Visit Minutes 50 Visit Information Visit Number 2 Plan of Care Dates 02/14/2022 - 06/03/2022 Insurance Information [employer] Dimensions Setting Treatment Setting Outpatient Care Visit Type Note Type Treatment Note Next Note Type Next Note Type Treatment Note General Information Patient History Per [facility] Hx: Diana is a 51-year old female with a history of HTN, depression, and anxiety, admitted to [facility] on 12/17 as a stroke code with R hemiparesis and aphasia found to have L M1 occlusion/large L MCA stroke c /b edema with midline shift s/ p left crani on 12/19. Pt received speech therapy to treat acute mild dysphagia following stroke. Per history: Patient presents with impaired swallow safety d/t reduced laryngeal vestibule closure and delayed epiglottic retroflexion resulting in aspiration of thin liquids during the swallow; pt was sensate. However, pt with coughing throughout the exam with no aspiration/penetration was present. Coughing unreliable means of determining airway invasion at the bedside, will likely require a repeat VFSS to upgrade liquid diet. Pt with no evidence of airway invasion with all mildly thick liquid and solid trials. Per family, Diana is on a regular diet with thin liquids at this time per previous POLICYHOLDER INFORMATION CLERK recommendations. Diana presents with severe expressive aphasia. They reported Diana's primary goal for therapy is to communicate more effectively, as she is currently limited to inconsistently accurate y/n answers. stated Diana understands everything, but is unable to communicate, often using words like itzel or people to mean other things. Sister added pt will also say penis a lot when trying to communicate. Family stated yes /no responses are mostly accurate, though Diana will sometimes get confused and say yes when she means no, or vice versa. reported Diana will sometimes catch herself doing this and revise her answer. Family would like more ease in communication as it primarily consists of pointing and asking a series of y/n questions to determine what Diana's wants and needs are. They added Diana has a communication book at home from her previous POLICYHOLDER INFORMATION CLERK, but use of this is limited. Family has been working with Diana on writing, though Diana is right handed and she is experiencing R hemiparesis, which currently eliminates use of right hand. Subjective Identification Type Name Identification Reconciled With Medical Record Others Present Family Observations/Patient Presentation Diana arrived on time accompanied by her , who was present for the session. Chief Complaint(s) Speech,Language Objective Short Term Goals 1. Diana will produce /s, p, b, m/ with 100% accuracy given no model across 2 sessions. 2. Diana will determine AAC technique (e.g., communication book, writing, typing, choices, etc.) to increase communicative ability and use the technique across a variety of communication settings, as reported by family and observed by POLICYHOLDER INFORMATION CLERK. Letterpress Setter Goals Diana will communicate using total communication (e.g., AAC , verbal communication, gestures, etc.) to express her wants and needs, as reported by pt, family, and observed by POLICYHOLDER INFORMATION CLERK. Treatment Activities Discussed progress in HEP. Discussed emotion flowsheet and practiced working through it. Discussed limited insurance benefits and transition to once a month appointments to conserve benefits. Discussed handwriting as option for communication and practiced writing. Assessment Patient Response to Treatment Good Impairments Identified Expressive language Progress Towards Goals Slow Progress Assessment of Overall Progress Improving Assessment of Improvement Diana said people today and used pointing primarily for effective and intentional communication. They expressed understanding of emotion flowsheet and will try this at home. Diana copied written words hungry and food with some letter exchanges (i.e., hugnfy for hungry) and attempted spontaneous writing of food words (she wrote aonaaa and ardaaa). Will continue to work on handwriting as communication option as well as AAC (emotion flowsheet) and functional phrases for improved communication. Will keep appointment next week to answer questions about new HEP and transition to once a month appointments following that to conserve insurance benefits. Reviewed with Patient Goals,Progress Being Made,Home Exercise Program Patient/Caregiver Understanding Excellent Plan Amount of Therapy Recommended 6 Months Frequency of Treatment Once a Week Length of Session 45 Minutes Therapeutic Contents Articulation Training,AAC, Client Education,Home Exercise Program,Oral Motor Training Provided Patient/Caregiver Instruction Home Exercise Program,Plan of Care,Questions/Concerns Therapy Recommendations Continue with Current Program, Decrease Frequency of Rehabilitation
--- NOTE | 2022-03-29 11:09 | ST.OPTN ---
Visit Care Team Role Provider Type VENKATA Frey Family Provider Advanced Dip Filler Primary Care Provider Address: [address] [place] [address], [address], [place], [address] Jacinta Diggs MD Attending Provider Non-Staff Referring Provider Address: [address] [place], [address] SENIOR INFRASTRUCTURE ENGINEER Treatment Note SENIOR INFRASTRUCTURE ENGINEER Treatment Note Start: 03/04/22 10:11 Freq: Status: Active Protocol: Document 03/29/22 10:59 ZS (Rec: 03/29/22 11:08 ZS [id number]) Speech Pathology Treatment Note Session Time Visit Start Time 10:35 Visit Stop Time 11:00 Total Visit Minutes 25 Visit Information Visit Number 3 Plan of Care Dates 02/14/2022 - 06/03/2022 Insurance Information [employer] Dim[employer] Setting Treatment Setting Outpatient Care Visit Type Note Type Treatment Note Next Note Type Next Note Type Treatment Note General Information Patient History Per [facility] Hx: Diana is a 51-year old female with a history of HTN, depression, and anxiety, admitted to [facility] on 12/17 as a stroke code with R hemiparesis and aphasia found to have L M1 occlusion/large L MCA stroke c /b edema with midline shift s/ p left crani on 12/19. Pt received speech therapy to treat acute mild dysphagia following stroke. Per history: Patient presents with impaired swallow safety d/t reduced laryngeal vestibule closure and delayed epiglottic retroflexion resulting in aspiration of thin liquids during the swallow; pt was sensate. However, pt with coughing throughout the exam with no aspiration/penetration was present. Coughing unreliable means of determining airway invasion at the bedside, will likely require a repeat VFSS to upgrade liquid diet. Pt with no evidence of airway invasion with all mildly thick liquid and solid trials. Per family, Diana is on a regular diet with thin liquids at this time per previous SENIOR INFRASTRUCTURE ENGINEER recommendations. Diana presents with severe expressive aphasia. They reported Diana's primary goal for therapy is to communicate more effectively, as she is currently limited to inconsistently accurate y/n answers. stated Diana understands everything, but is unable to communicate, often using words like itzel or people to mean other things. Sister added pt will also say penis a lot when trying to communicate. Family stated yes /no responses are mostly accurate, though Diana will sometimes get confused and say yes when she means no, or vice versa. reported Diana will sometimes catch herself doing this and revise her answer. Family would like more ease in communication as it primarily consists of pointing and asking a series of y/n questions to determine what Diana's wants and needs are. They added Diana has a communication book at home from her previous SENIOR INFRASTRUCTURE ENGINEER, but use of this is limited. Family has been working with Diana on writing, though Diana is right handed and she is experiencing R hemiparesis, which currently eliminates use of right hand. Subjective Identification Type Name Identification Reconciled With Medical Record Others Present Family Observations/Patient Presentation Diana arrived on time accompanied by her , who was present for the session. They reported emotion flowsheet was helpful, though challenging to read emotions due to size of image and contrast between text and background color. Requested email copy sent to email on file so family can view/print their own copy. Chief Complaint(s) Speech,Language Objective Short Term Goals 1. Diana will produce /s, p, b, m/ with 100% accuracy given no model across 2 sessions. 2. Diana will determine AAC technique (e.g., communication book, writing, typing, choices, etc.) to increase communicative ability and use the technique across a variety of communication settings, as reported by family and observed by SENIOR INFRASTRUCTURE ENGINEER. Alf Goals Diana will communicate using total communication (e.g., AAC , verbal communication, gestures, etc.) to express her wants and needs, as reported by pt, family, and observed by SENIOR INFRASTRUCTURE ENGINEER. Treatment Activities Discussed progress in HEP. Reviewed HEP to practice between now and next session. Discussed location-specific AAC to help communicate in variety of locations with more specific language. Discussed limited insurance benefits and transition to once a month appointments to conserve benefits. Assessment Patient Response to Treatment Good Impairments Identified Expressive language Progress Towards Goals Slow Progress Assessment of Overall Progress Improving Assessment of Improvement Diana said people today and used pointing primarily for effective and intentional communication. Discussed HEP to practice: location-specific AAC, handwriting, oral motor exercises, emotion flowsheet. Provided education regarding location-specific AAC to aid in communication efficiency of more specific wants/needs specific to different locations. For example, favorite TV shows, hobbies, board games in living room, favorite places to go on back of front door, etc. Pt and expressed understanding and will create and implement this week as pt' s sister is in town. Discussed practicing copying words to improve handwriting with non- dominant hand and working up to delayed copy to increase legibility with independent handwriting. Continued oral motor exercises as HEP to aid in progress toward verbal speech. Continued use of emotion flowsheet with possible addition of solution options (e.g., Do you want [ solution], [space], [company]? ). Family expressed understanding of all strategies and exercise and will implement over next month . Will transition to once a month appointments following that to conserve insurance benefits. Reviewed with Patient Goals,Progress Being Made,Home Exercise Program Patient/Caregiver Understanding Excellent Plan Amount of Therapy Recommended 6 Months Frequency of Treatment Once a Week Length of Session 45 Minutes Therapeutic Contents Articulation Training,AAC, Client Education,Home Exercise Program,Oral Motor Training Provided Patient/Caregiver Instruction Home Exercise Program,Plan of Care,Questions/Concerns Therapy Recommendations Continue with Current Program
--- NOTE | 2022-04-28 16:26 | ST.OPTN ---
Visit Care Team Role Provider Type VENKATA Frey Family Provider Advanced Supervisor Jewelry Department Primary Care Provider Address: [address] [place] [address], [address], [place], [address] Jacinta Diggs MD Attending Provider Non-Staff Referring Provider Address: [address] [place], [address] QUALITY ASSURANCE CLERK Treatment Note QUALITY ASSURANCE CLERK Treatment Note Start: 03/04/22 10:11 Freq: Status: Active Protocol: Document 04/28/22 16:18 ZS (Rec: 04/28/22 16:26 ZS [id number]) Speech Pathology Treatment Note Session Time Visit Start Time 15:30 Visit Stop Time 16:16 Total Visit Minutes 46 Visit Information Visit Number 4 Plan of Care Dates 02/14/2022 - 06/03/2022 Insurance Information [employer] Setting Treatment Setting Outpatient Care Visit Type Note Type Treatment Note Next Note Type Next Note Type Treatment Note General Information Patient History Per [facility] Hx: Diana is a 51-year old female with a history of HTN, depression, and anxiety, admitted to [facility] on 12/17 as a stroke code with R hemiparesis and aphasia found to have L M1 occlusion/large L MCA stroke c /b edema with midline shift s/ p left crani on 12/19. Pt received speech therapy to treat acute mild dysphagia following stroke. Per history: Patient presents with impaired swallow safety d/t reduced laryngeal vestibule closure and delayed epiglottic retroflexion resulting in aspiration of thin liquids during the swallow; pt was sensate. However, pt with coughing throughout the exam with no aspiration/penetration was present. Coughing unreliable means of determining airway invasion at the bedside, will likely require a repeat VFSS to upgrade liquid diet. Pt with no evidence of airway invasion with all mildly thick liquid and solid trials. Per family, Diana is on a regular diet with thin liquids at this time per previous QUALITY ASSURANCE CLERK recommendations. Diana presents with severe expressive aphasia. They reported Diana's primary goal for therapy is to communicate more effectively, as she is currently limited to inconsistently accurate y/n answers. stated Diana understands everything, but is unable to communicate, often using words like itzel or people to mean other things. Sister added pt will also say penis a lot when trying to communicate. Family stated yes /no responses are mostly accurate, though Diana will sometimes get confused and say yes when she means no, or vice versa. reported Diana will sometimes catch herself doing this and revise her answer. Family would like more ease in communication as it primarily consists of pointing and asking a series of y/n questions to determine what Diana's wants and needs are. They added Diana has a communication book at home from her previous QUALITY ASSURANCE CLERK, but use of this is limited. Family has been working with Diana on writing, though Diana is right handed and she is experiencing R hemiparesis, which currently eliminates use of right hand. Subjective Identification Type Name Identification Reconciled With Medical Record Others Present Family Observations/Patient Presentation Diana arrived on time accompanied by her , who was present for the session. They reported they did not remember the location- specific AAC and have had limited opportunities to use the emotion flow sheet. Diana has been working with her sister, Aleah (/t?nj?/) on simultaneous singing and counting up to 10-14. Chief Complaint(s) Speech,Language Objective Short Term Goals 1. Diana will produce /s, p, b, m/ with 100% accuracy given no model across 2 sessions. 2. Diana will determine AAC technique (e.g., communication book, writing, typing, choices, etc.) to increase communicative ability and use the technique across a variety of communication settings, as reported by family and observed by QUALITY ASSURANCE CLERK. [facility] Goals Diana will communicate using total communication (e.g., AAC , verbal communication, gestures, etc.) to express her wants and needs, as reported by pt, family, and observed by QUALITY ASSURANCE CLERK. Treatment Activities Discussed progress in HEP. Reviewed HEP to practice between now and next session. Discussed location-specific AAC to help communicate in variety of locations with more specific language. Continue once a month appointments to conserve insurance benefits. Assessment Patient Response to Treatment Good Impairments Identified Expressive language Progress Towards Goals Slow Progress Assessment of Overall Progress Improving Assessment of Improvement Diana said people today and used pointing primarily for effective and intentional communication. Discussed HEP to practice: location-specific AAC, handwriting, oral motor exercises, emotion flow sheet. Diana counted back and forth repeating QUALITY ASSURANCE CLERK up to 5. She counted simultaneously with her up to 15. Difficulty singing songs in session today, but observed to approximate more words while singing. Practiced writing 2-3 letter words. Diana copied words of varying lengths with 100% accuracy. She copied 2-3 letter words with a delayed model with reduced accuracy. Often first letter was correct and subsequent letters were either correct shape but rotated or non-letters. Family to continue working on delayed copying of written words as well as creating location-specific AAC for use at home. Reviewed with Patient Goals,Progress Being Made,Home Exercise Program Patient/Caregiver Understanding Excellent Plan Amount of Therapy Recommended 6 Months Frequency of Treatment Once a Week Length of Session 45 Minutes Therapeutic Contents Articulation Training,AAC, Client Education,Home Exercise Program,Oral Motor Training Provided Patient/Caregiver Instruction Home Exercise Program,Plan of Care,Questions/Concerns Therapy Recommendations Continue with Current Program
--- NOTE | 2022-06-06 16:54 | ST.OPTN ---
Visit Care Team Role Provider Type VENKATA Frey Family Provider Advanced Command And Control Officer Primary Care Provider Address: [address] [place] [address], [address], [place], [address] Jacinta Diggs MD Attending Provider Non-Staff Referring Provider Address: [address] [place], [address] COCOA POWDER MIXER OPERATOR Treatment Note COCOA POWDER MIXER OPERATOR Treatment Note Start: 03/04/22 10:11 Freq: Status: Active Protocol: Document 06/06/22 16:10 BE (Rec: 06/06/22 16:53 BE [id number]) Speech Pathology Treatment Note Session Time Visit Start Time 10:30 Visit Stop Time 11:15 Total Visit Minutes 45 Visit Information Visit Number 5 Plan of Care Dates 06/03/22 - 09/02/22 Insurance Information [employer] Setting Treatment Setting Outpatient Care Visit Type Note Type Progress Note Next Note Type Next Note Type Treatment Note General Information Patient History Per [facility] Hx: Diana is a 51-year old female with a history of HTN, depression, and anxiety, admitted to [facility] on 12/17 as a stroke code with R hemiparesis and aphasia found to have L M1 occlusion/large L MCA stroke c /b edema with midline shift s/ p left crani on 12/19. Pt received speech therapy to treat acute mild dysphagia following stroke. Per history: Patient presents with impaired swallow safety d/t reduced laryngeal vestibule closure and delayed epiglottic retroflexion resulting in aspiration of thin liquids during the swallow; pt was sensate. However, pt with coughing throughout the exam with no aspiration/penetration was present. Coughing unreliable means of determining airway invasion at the bedside, will likely require a repeat VFSS to upgrade liquid diet. Pt with no evidence of airway invasion with all mildly thick liquid and solid trials. Per family, Diana is on a regular diet with thin liquids at this time per previous COCOA POWDER MIXER OPERATOR recommendations. Diana presents with severe expressive aphasia. They reported Diana's primary goal for therapy is to communicate more effectively, as she is currently limited to inconsistently accurate y/n answers. stated Diana understands everything, but is unable to communicate, often using words like itzel or people to mean other things. Sister added pt will also say penis a lot when trying to communicate. Family stated yes /no responses are mostly accurate, though Diana will sometimes get confused and say yes when she means no, or vice versa. reported Diana will sometimes catch herself doing this and revise her answer. Family would like more ease in communication as it primarily consists of pointing and asking a series of y/n questions to determine what Diana's wants and needs are. They added Diana has a communication book at home from her previous COCOA POWDER MIXER OPERATOR, but use of this is limited. Family has been working with Diana on writing, though Diana is right handed and she is experiencing R hemiparesis, which currently eliminates use of right hand. Subjective Identification Type Name Identification Reconciled With Medical Record Others Present Family,Student Observations/Patient Presentation Diana arrived on time accompanied by her sister, who was present for the session. COCOA POWDER MIXER OPERATOR student also present for the session. Diana has been working with her sister, Aleah (/t?nj?/) on simultaneous singing, repeating words with visual, verbal, and tactile cues (e.g., visual model for word/sound pronunciation, mirror for positioning enforcement, directions for placement, hand to outside of mouth or popsicle stick for movement of articulators). Chief Complaint(s) Speech,Language Objective Short Term Goals 1. Diana will produce /s, p, b, m/ with 100% accuracy given no model across 2 sessions. 2. Diana will determine AAC technique (e.g., communication book, writing, typing, choices, etc.) to increase communicative ability and use the technique across a variety of communication settings, as reported by family and observed by COCOA POWDER MIXER OPERATOR. Pipe Buffer Goals Diana will communicate using total communication (e.g., AAC , verbal communication, gestures, etc.) to express her wants and needs, as reported by pt, family, and observed by COCOA POWDER MIXER OPERATOR. Treatment Activities Discussed progress in HEP. Reviewed HEP to practice between now and next session. Discussed location-specific AAC to help communicate, specifically in the car. Probed for grapheme recognition and writing skills . Practiced writing cvc and vcc words with and without visual model. Varied challenge level by increasing/ decreasing amount of time visual model was presented for or implementing time delays between model and request for production. Probed independence with automatic singing task (i.e., happy birthday). Assessment Patient Response to Treatment Good Impairments Identified Expressive language Progress Towards Goals Slow Progress Assessment of Overall Progress Improving Assessment of Improvement Diana said people frequently and used pointing primarily for effective and intentional communication, which is consistent with previous sessions. She stated cool without prompting in addition to other spontaneous production of words/phrases (e .g., Oh my God), which is a significant change since initial evaluation, where speech was limited to perseverated words (e.g., people, parents). Discussed HEP to practice: location- specific AAC, speech practice and handwriting. Practiced writing 2-3 letter animal words, mostly with a model presented for 2-3 seconds prior to trial. Some perseveration on writing word pig. Many productions of similarly shaped letters (e.g. , Mark Anthony for cow) for targeted words. Small number of correctly written words. Increased success with productions with time-delayed model. Sister noted that this could be due to increased processing time allowed. Diana was able to correctly identify written words following visual presentation (i.e., picture) of targeted word. Diana demonstrated emerging success with producing varied speech sounds and words when given maximal cues (visual, verbal, tactile). Family to continue working on delayed copying of written words as well as creating location- specific AAC for use at home. Diana has exhibited good improvement in writing as compared to initial evaluation , where reproducing written words was a challenge. In today's session, she reproduced written words given a time-delay. Continued difficulty with spontaneous production of words and writing words given no visual model. Diana exhibited improvement in speech production since initial evaluation as well and has benefitted greatly from simultaneous speaking and singing with her sister. Today , she simultaneously sang Happy Birthday with her sister and then sang Happy Birthday given verbal cues to start the song. She filled in her sister's name without a model while singing. Recommend continued speech therapy for improved expressive communication using multi- modal communication tools to communicate wants and needs, especially in emergency situations. Reviewed with Patient Goals,Progress Being Made,Home Exercise Program Patient/Caregiver Understanding Excellent Plan Amount of Therapy Recommended 6 Months Comment 1x per month Length of Session 45 Minutes Therapeutic Contents Articulation Training,AAC, Client Education,Home Exercise Program,Oral Motor Training Provided Patient/Caregiver Instruction Home Exercise Program,Plan of Care,Questions/Concerns Therapy Recommendations Continue with Current Program
--- NOTE | 2022-06-06 16:55 | ST.OPPOC ---
Physical, Occupational & Speech Therapy At [facility] Visit Care Team Role Provider Type VENKATA Frey Family Provider Advanced Fabricating Machine Operator Primary Care Provider Address: [facility], [address], [place], [address] Jacinta Diggs MD Attending Provider Non-Staff Referring Provider Address: [address] [place], [address] Speech Pathology Plan of Care Plan of Care Dates 06/03/22 - 09/02/[address] Diggs Patient History Per [facility] Hx: Diana is a 51- year old female with a history of HTN, depression, and anxiety, admitted to [facility] on 12/17 as a stroke code with R hemiparesis and aphasia found to have L M1 occlusion/large L MCA stroke c/b edema with midline shift s/p left crani on 12/19. Pt received speech therapy to treat acute mild dysphagia following stroke. Per history: Patient presents with impaired swallow safety d/ t reduced laryngeal vestibule closure and delayed epiglottic retroflexion resulting in aspiration of thin liquids during the swallow; pt was sensate. However, pt with coughing throughout the exam with no aspiration/ penetration was present. Coughing unreliable means of determining airway invasion at the bedside, will likely require a repeat VFSS to upgrade liquid diet. Pt with no evidence of airway invasion with all mildly thick liquid and solid trials. Per family, Diana is on a regular diet with thin liquids at this time per previous SECURITY PROJECT MANAGER recommendations. Diana presents with severe expressive aphasia. They reported Diana's primary goal for therapy is to communicate more effectively, as she is currently limited to inconsistently accurate y/n answers. stated Diana understands everything, but is unable to communicate, often using words like itzel or people to mean other things. Sister added pt will also say penis a lot when trying to communicate. Family stated yes/no responses are mostly accurate, though Diana will sometimes get confused and say yes when she means no, or vice versa. reported Diana will sometimes catch herself doing this and revise her answer. Family would like more ease in communication as it primarily consists of pointing and asking a series of y/n questions to determine what Diana's wants and needs are. They added Diana has a communication book at home from her previous SECURITY PROJECT MANAGER , but use of this is limited. Family has been working with Diana on writing, though Diana is right handed and she is experiencing R hemiparesis, which currently eliminates use of right hand. Impairments Identified Expressive language Progress Towards Goals Slow Progress General Tasks and Demands Severe Household Tasks Severe Interpersonal Interactions Severe Education Severe Employment Severe Community Moderate Short Term Goals 1. Diana will produce /s, p, b, m/ with 100% accuracy given no model across 2 sessions. 2. Diana will determine AAC technique (e.g., communication book, writing, typing, choices, etc.) to increase communicative ability and use the technique across a variety of communication settings, as reported by family and observed by SECURITY PROJECT MANAGER. Director Of Recruitment Goals Diana will communicate using total communication (e.g., AAC, verbal communication, gestures, etc. ) to express her wants and needs, as reported by pt, family, and observed by SECURITY PROJECT MANAGER. Comment: Electronically Signed by: Joelle Spears 06/06/22 0859 If you are in agreement with this Plan of Care, please return a signed and dated copy. I have reviewed this Plan of Care and certify that the skilled therapy services above are required to meet the patient?s needs. Physician Signature Date Printed Name and Credentials Clinical Instructor Signature Printed Name and Credentials
--- NOTE | 2022-07-05 16:30 | ST.OPDS ---
Visit Care Team Role Provider Type VENKATA Frey Family Provider Advanced Child Support Officer Primary Care Provider Address: [address] [place] [address], [address], [place], [address] Jacinta Diggs MD Attending Provider Non-Staff Referring Provider Address: [address] [place], [address] VICE SQUAD POLICE OFFICER Treatment Note VICE SQUAD POLICE OFFICER Clinical Instructor Line Start: 06/06/22 16:53 Freq: Status: Active Protocol: Document 07/04/22 10:35 BE (Rec: 07/05/22 10:47 BE [id number]) Clinical Instructor Signature Clinical Instructor Clinical Instructor Yes VICE SQUAD POLICE OFFICER Treatment Note Start: 03/04/22 10:11 Freq: Status: Active Protocol: Document 07/04/22 10:35 BE (Rec: 07/05/22 10:47 BE [id number]) Speech Pathology Treatment Note Session Time Visit Start Time 10:00 Visit Stop Time 10:45 Total Visit Minutes 45 Visit Information Visit Number 6 Plan of Care Dates 06/03/22 - 09/02/22 Insurance Information [employer] Setting Treatment Setting Outpatient Care Visit Type Note Type Discharge Summary General Information Patient History Per [facility] Hx: Diana is a 51-year old female with a history of HTN, depression, and anxiety, admitted to [facility] on 12/17 as a stroke code with R hemiparesis and aphasia found to have L M1 occlusion/large L MCA stroke c /b edema with midline shift s/ p left crani on 12/19. Pt received speech therapy to treat acute mild dysphagia following stroke. Per history: Patient presents with impaired swallow safety d/t reduced laryngeal vestibule closure and delayed epiglottic retroflexion resulting in aspiration of thin liquids during the swallow; pt was sensate. However, pt with coughing throughout the exam with no aspiration/penetration was present. Coughing unreliable means of determining airway invasion at the bedside, will likely require a repeat VFSS to upgrade liquid diet. Pt with no evidence of airway invasion with all mildly thick liquid and solid trials. Per family, Diana is on a regular diet with thin liquids at this time per previous VICE SQUAD POLICE OFFICER recommendations. Diana presents with severe expressive aphasia. They reported Diana's primary goal for therapy is to communicate more effectively, as she is currently limited to inconsistently accurate y/n answers. stated Diana understands everything, but is unable to communicate, often using words like itzel or people to mean other things. Sister added pt will also say penis a lot when trying to communicate. Family stated yes /no responses are mostly accurate, though Diana will sometimes get confused and say yes when she means no, or vice versa. reported Diana will sometimes catch herself doing this and revise her answer. Family would like more ease in communication as it primarily consists of pointing and asking a series of y/n questions to determine what Diana's wants and needs are. They added Diana has a communication book at home from her previous VICE SQUAD POLICE OFFICER, but use of this is limited. Family has been working with Diana on writing, though Diana is right handed and she is experiencing R hemiparesis, which currently eliminates use of right hand. Subjective Identification Type Name Identification Reconciled With Medical Record Others Present Family,Student Observations/Patient Presentation Diana arrived on time accompanied by her sister, who was present for the session. VICE SQUAD POLICE OFFICER student led the session. Diana has been working with her sister, Aleah (/t?nj?/) on simultaneous singing, repeating words with visual, verbal, and tactile cues (e.g. , visual model for word/sound pronunciation, mirror for positioning enforcement, directions for placement, hand to outside of mouth or popsicle stick for movement of articulators), as well as writing 3 letter words. Chief Complaint(s) Speech,Language Objective Short Term Goals 1. Diana will produce /s, p, b, m/ with 100% accuracy given no model across 2 sessions. 2. Diana will determine AAC technique (e.g., communication book, writing, typing, choices, etc.) to increase communicative ability and use the technique across a variety of communication settings, as reported by family and observed by VICE SQUAD POLICE OFFICER. Prison Goals Diana will communicate using total communication (e.g., AAC , verbal communication, gestures, etc.) to express her wants and needs, as reported by pt, family, and observed by VICE SQUAD POLICE OFFICER. Treatment Activities Discussed progress in HEP. Reviewed HEP to practice between now and next session. Practiced writing cvc words with and without visual model. Varied challenge level by increasing/decreasing amount of time visual model was presented for or implementing time delays between model and request for production. Given a written model for 3 seconds that targeted 1 letter change from previously targeted word, pt independently wrote 4/8 CVC words correctly and 6/8 with emphasis and cueing for sound (doG. G sound at end). With no model, pt wrote 0/3 correct CVC words. Diana replicated long vowel sound with model (visual, auditory) with >90% accuracy, and short vowel sounds with <40%. Assessment Patient Response to Treatment Good Impairments Identified Expressive language Progress Towards Goals Slow Progress Assessment of Overall Progress Improving Assessment of Improvement Diana said people frequently and used pointing primarily for effective and intentional communication, which is consistent with previous sessions. She stated bark spontaneously when attempting to read the word dog aloud, showing independent association. Diana demonstrated significant improvement in her ability to reproduce written CVC words following a 3 second model and time delay, as well as her ability to cue herself for phoneme-grapheme correlation. Diana also showed emerging success with reading single graphemes with their appropriate phoneme, which she has not done in the past. Discussed HEP to practice: low -tech AAC (lists), speech practice with visual cues ( speaking partner mouth, mirror , written) and handwriting CVC words. words. Diana was able to say her families' names and her address when given simultaneous verbal model. Pt requested discharge. Will continue with HEP independently and return to ST if they require more assistance. Reviewed with Patient Goals,Progress Being Made,Home Exercise Program Patient/Caregiver Understanding Excellent Plan Therapeutic Contents Articulation Training,AAC, Client Education,Home Exercise Program,Oral Motor Training Provided Patient/Caregiver Instruction Home Exercise Program,Plan of Care,Questions/Concerns Therapy Recommendations Discharge to Home Exercise Program,Discharge from Speech Therapy Reason for Discharge Pt request
--- NOTE | 2022-07-05 16:56 | ST.OPTN ---
Visit Care Team Role Provider Type VENKATA Frey Family Provider Advanced Heel Seat Trimmer Primary Care Provider Address: [address] [place] [address], [address], [place], [address] Jacinta iDggs MD Attending Provider Non-Staff Referring Provider Address: [address] [place], [address] MI[employer] EXCHANGE ARCHITECT Treatment Note [employer]CHITECT Clinical Instructor Line Start: 06/06/22 16:53 Freq: Status: Active Protocol: Document 07/04/22 10:35 BE (Rec: 07/05/22 10:47 BE [id number]) Clinical Instructor Signature Clinical Instructor Clinical Instructor Yes [employer]CH[employer]ECT Treatment Note Start: 03/04/22 10:11 Freq: Status: Active Protocol: Document 07/04/22 10:35 BE (Rec: 07/05/22 10:47 BE [id number]) Speech Pathology Treatment Note Session Time Visit Start Time 10:00 Visit Stop Time 10:45 Total Visit Minutes 45 Visit Information Visit Number 6 Plan of Care Dates 06/03/22 - 09/02/22 Insurance Information [employer] Setting Treatment Setting Outpatient Care Visit Type Note Type Progress Note Next Note Type Next Note Type Treatment Note General Information Patient History Per [facility] Hx: Diana is a 51-year old female with a history of HTN, depression, and anxiety, admitted to [facility] on 12/17 as a stroke code with R hemiparesis and aphasia found to have L M1 occlusion/large L MCA stroke c /b edema with midline shift s/ p left crani on 12/19. Pt received speech therapy to treat acute mild dysphagia following stroke. Per history: Patient presents with impaired swallow safety d/t reduced laryngeal vestibule closure and delayed epiglottic retroflexion resulting in aspiration of thin liquids during the swallow; pt was sensate. However, pt with coughing throughout the exam with no aspiration/penetration was present. Coughing unreliable means of determining airway invasion at the bedside, will likely require a repeat VFSS to upgrade liquid diet. Pt with no evidence of airway invasion with all mildly thick liquid and solid trials. Per family, Diana is on a regular diet with thin liquids at this time per previous MI[employer]OS[employer] EXCHANGE ARCHITECT recommendations. Diana presents with severe expressive aphasia. They reported Diana's primary goal for therapy is to communicate more effectively, as she is currently limited to inconsistently accurate y/n answers. stated Diana understands everything, but is unable to communicate, often using words like itzel or people to mean other things. Sister added pt will also say penis a lot when trying to communicate. Family stated yes /no responses are mostly accurate, though Diana will sometimes get confused and say yes when she means no, or vice versa. reported Diana will sometimes catch herself doing this and revise her answer. Family would like more ease in communication as it primarily consists of pointing and asking a series of y/n questions to determine what Diana's wants and needs are. They added Diana has a communication book at home from her previous MICROS[employer]FT EXCHANGE ARCHITECT, but use of this is limited. Family has been working with Diana on writing, though Diana is right handed and she is experiencing R hemiparesis, which currently eliminates use of right hand. Subjective Identification Type Name Identification Reconciled With Medical Record Others Present Family,Student Observations/Patient Presentation Diana arrived on time accompanied by her sister, who was present for the session. MI[employer] EXCHANGE ARCHITECT student led the session. Diana has been working with her sister, Aleah (/t?nj?/) on simultaneous singing, repeating words with visual, verbal, and tactile cues (e.g. , visual model for word/sound pronunciation, mirror for positioning enforcement, directions for placement, hand to outside of mouth or popsicle stick for movement of articulators), as well as writing 3 letter words. Chief Complaint(s) Speech,Language Objective Short Term Goals 1. Diana will produce /s, p, b, m/ with 100% accuracy given no model across 2 sessions. 2. Diana will determine AAC technique (e.g., communication book, writing, typing, choices, etc.) to increase communicative ability and use the technique across a variety of communication settings, as reported by family and observed by MICROSOFT EXCHANGE ARCHITECT. Fdc Goals Diana will communicate using total communication (e.g., AAC , verbal communication, gestures, etc.) to express her wants and needs, as reported by pt, family, and observed by MICROSOFT EXCHANGE ARCHITECT. Treatment Activities Discussed progress in HEP. Reviewed HEP to practice between now and next session. Practiced writing cvc words with and without visual model. Varied challenge level by increasing/decreasing amount of time visual model was presented for or implementing time delays between model and request for production. Given a written model for 3 seconds that targeted 1 letter change from previously targeted word, pt independently wrote 4/8 CVC words correctly and 6/8 with emphasis and cueing for sound (doG. G sound at end). With no model, pt wrote 0/3 correct CVC words. Diana replicated long vowel sound with model (visual, auditory) with >90% accuracy, and short vowel sounds with <40%. Assessment Patient Response to Treatment Good Impairments Identified Expressive language Progress Towards Goals Slow Progress Assessment of Overall Progress Improving Assessment of Improvement Diana said people frequently and used pointing primarily for effective and intentional communication, which is consistent with previous sessions. She stated bark spontaneously when attempting to read the word dog aloud, showing independent association. Diana demonstrated significant improvement in her ability to reproduce written CVC words following a 3 second model and time delay, as well as her ability to cue herself for phoneme-grapheme correlation. Diana also showed emerging success with reading single graphemes with their appropriate phoneme, which she has not done in the past. Discussed HEP to practice: low -tech AAC (lists), speech practice with visual cues ( speaking partner mouth, mirror , written) and handwriting CVC words. words. Diana was able to say her families' names and her address when given simultaneous verbal model. Reviewed with Patient Goals,Progress Being Made,Home Exercise Program Patient/Caregiver Understanding Excellent Plan Amount of Therapy Recommended 6 Months Comment 1x per month Length of Session 45 Minutes Therapeutic Contents Articulation Training,AAC, Client Education,Home Exercise Program,Oral Motor Training Provided Patient/Caregiver Instruction Home Exercise Program,Plan of Care,Questions/Concerns Therapy Recommendations Continue with Current Program
== END 2022-07-12 15:16 | disposition home or self-care (01) ==
LOC: SP 10:00
PROVIDERS: Family Provider Internal Medicine; PCP Internal Medicine; Referring Provider Internal Medicine; Visit Provider Internal Medicine
DX: I63.9 Cerebral infarction, unspecified (principal)
CPT/HCPCS: 92507; 92523

== ENCOUNTER 2022-08-23 08:30 | Outpatient (RCR) | payer OTHER, SELFPAY ==
--- NOTE | 2022-03-09 11:00 | OT.OP.EVAL ---
Visit Care Team Role Provider Type VENKATA Frey Family Provider Advanced Retail Field Representative Primary Care Provider Specialty: Family Practice Address: [address] [place] [address], [facility], [place], [address] Email: [email or web address] Jacinta Diggs MD Attending Provider Non-Staff Referring Provider Specialty: Medical Address: [facility] [place], [address] Email: Occupational Therapy Initial Evaluation OT Outpatient Adult Evaluation Start: 03/09/22 10:18 Freq: Status: Active Protocol: Document 03/09/22 10:19 AMS (Rec: 03/09/22 11:00 AMS [id number]) General Information - Adult Visit Number 1 Plan of Care Dates 03/09/22 - 06/01/22 Insurance Information [employer] OT; Max 45 Combined PT /OT/PLASTER MIXER Visit Start Time 08:30 Visit Stop Time 09:18 Total Visit Minutes 48 Treatment Setting Outpatient Care Note Type Initial Evaluation Referring Physician VENKATA Frey Identification Confirmed Yes Identification Confirmed By Harmeet Previous Therapy/Therapies Yes History of Therapy Inpatient PT/OT/PLASTER MIXER Current Therapy/Therapies PT/PLASTER MIXER Goals Short Term Goals 1. Patient will present with improved active range of motion of the right upper extremity. 1a. Patient will demonstrate 10 degrees active right elbow flexion. Group Home Goals 1. Patient will be modified independent with execution of right upper extremity home exercise program with support of spouse, family, friends, utilizing provided written and visual instructions from therapist. Assessment/Plan Treatment Assessment Diana is a 51 year-old right hand dominant female referred by her PCP, VENKATA Frey, to outpatient OT secondary to ischemic stroke that reportedly occurred in 12/2021 . Diana was accompanied by her , Harmeet. Harmeet assisted w / history intake and answered therapist's questions given Diana's difficulties w/ communication. Diana is currently working w/ outpatient PLASTER MIXER to identify supports for communicating w/ others. PMH: CT Scan at [facility] 12/17/21 = 1. Acute or subacute cerebral ischemia/infarct in the left temporoparietal lobe. 2. Suspect high-grade stenosis or occlusion of a short segment of left M1 segment of the MCA; diminished flow in the left MCA territory. 3. 50% stenosis at origin of the left internal carotid artery; 40% stenosis at origin of the right internal carotid artery origin. 4. No significant disease in cervical vertebral arteries. Medical History significant for HTN and cranioectomy. GOALS: Patient's spouse requested focused attention to R UE rehabilitation. 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 EVALUATION FINDINGS: Diana presented in manual w/c w/ R arm rest, R AFO, helmet. Scheduled medical appointment following Monday d/t cranioectomy. History of receipt of wrist brace w/ poor tolerance. Pain Assessment Grid = 08/13 relative to R UE ( including hand) and R LE = completed by spouse, Harmeet. Nonverbal signs of pain/ discomfort of R UE noted w/ movement provided by therapist ; increased tolerance for positioning of the UE in space w/ 'rest'. R g/h sh subluxation; primarily focusing on supporting of the R UE. R Scapular winging. No guarding was observed at shoulder w/ arm supported and/ or not supported while seated in w/c. Discussed ranging/ positioning below 90 degrees in space. Mild R scapular winging w/ tendency to position w/ scapular protraction/R sh IR while seated in w/c. Passive R sh abd 90 degrees tolerated w/ positioning; passive R sh flex 90 degrees tolerated w/ positioning. Full passive R elbow flex; full passive elbow ext w/ some mild discomfort noted near end range of elbow ext approx -45 degrees. Full passive R wrist flex, wrist UD and wrist RD. Tightness of wrist/digit flexors; increased wrist ext noted w/ fingers in flexed position. Stiffness of digits of right hand; good passive extension of digits; tightness of 2-5 MPJs and intrinsic tightness noted. No AROM observed while seated in w/c of the R UE. (+) response to range of motion exercises; instructed in TT elbow flex and hor sh abd w/ use of visual. QuickDASH UE Outcome Measure Score = 80.0 (completed by , Harmeet). Harmeet is Diana's primary caregiver; the couple also receives support from family and friends. Diana is utilizing her left hand w/ self-feeding and basic self- care tasks. Diana would likely benefit from skilled outpatient OT to address right upper extremity ROM, right upper extremity positioning, as well as provide education ( modifications/techniques) to support Diana's ability to engage in meaningful activities in a variety of environments. Recommend exploring left hand function/ abilities given that Diana is utilizing her left hand for most tasks (including writing/ signature). *Monitor for distal UE swelling. Length of treatment (weeks) 12 Plan of Care Start Date 03/09/22 Plan of Care End Date 06/01/22 Comment 1 x a week; 1 x every other week; insurance limitations; * *monitor Therapeutic Contents Active Range of Motion, Adaptive Equipment Education, Client Education,Cognitive Skills Development,Functional Activities,Home Exercise Program,Joint Protection, Manual Therapy,Education, Neurodevelopment Treatment, Neuromuscular Re-Education, Self-Care,Stretching/ Flexibility Activities, Therapeutic Activities, Therapeutic Exercises, Modalities Modalities As Needed,As Prescribed Types of Modalities E-Stim,Functional Stimulation (FES),T.E.N. Stimulation,TENS Placement/Application, Ultrasound Additional Types of Modalities Ice/Heat/
--- NOTE | 2022-03-22 14:10 | OT.OP.TRT ---
Visit Care Team Role Provider Type VENKATA Frey Family Provider Advanced Market Research Analyst Primary Care Provider Specialty: Family Practice Address: [address] [place] [address], [facility], [place], [address] Email: [email or web address] Jacinta Diggs MD Attending Provider Non-Staff Referring Provider Specialty: Medical Address: [address] [place], [address] Email: Occupational Therapy Treatment Note OT Outpatient Treatment Note - Adult Start: 03/09/22 10:18 Freq: Status: Active Protocol: Document 03/22/22 13:59 AMS (Rec: 03/22/22 14:10 AMS [id number]) OT Outpatient Adult Treatment Note Session Time Visit Start Time 09:30 Visit Stop Time 10:25 Total Visit Minutes 55 Visit Information Visit Number 2 Plan of Care Dates 03/09/22 - 06/01/22 Insurance Information [employer] OT; Max 45 Combined PT /OT/TIN POT OPERATOR Setting Treatment Setting Outpatient Care Visit Type Note Type Treatment Note General Information General Information Diana is a 51 year-old right hand dominant female referred by her PCP, VENKATA Frey, to outpatient OT secondary to ischemic stroke that reportedly occurred in 12/2021 . Diana was accompanied by her , Harmeet. Harmeet assisted w / history intake and answered therapist's questions given Diana's difficulties w/ communication. iDana is currently working w/ outpatient TIN POT OPERATOR to identify supports for communicating w/ others. PMH: CT Scan at [facility] 12/17/21 = 1. Acute or subacute cerebral ischemia/infarct in the left temporoparietal lobe. 2. Suspect high-grade stenosis or occlusion of a short segment of left M1 segment of the MCA; diminished flow in the left MCA territory. 3. 50% stenosis at origin of the left internal carotid artery; 40% stenosis at origin of the right internal carotid artery origin. 4. No significant disease in cervical vertebral arteries. Medical History significant for HTN and cranioectomy. 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 - Subjective Identification Type Name Identification Reconciled With Medical Record Observations Diana was accompanied by her , Harmeet, to OT treatment session. Per Harmeet, Diana is receiving PT 2 times a week at [facility]. Patient Expectation/Goals R UE rehabilitation - Objective Objective Measurements Please refer to below for progress towards meeting established OT goals: Short Term Goals 1. Patient will present with improved active range of motion of the right upper extremity. 1a. Patient will demonstrate 10 degrees active right elbow flexion. Fuel Conversion Technician Goals 1. Patient will be modified independent with execution of right upper extremity home exercise program with support of spouse, family, friends, utilizing provided written and visual instructions from therapist. - Treatment 1 Descriptor Tone management. Proprioceptive input w/ elbow ext and wrist ext sitting w/ bolster on TT. Therapist knee sitting. Ball sitting. CGA w/ s-s (coming into standing at TT) w/ cueing to push-up from L arm rest. Standing at TT w/ towel x 2 min. Exercises 2 Descriptor Passive ROM of R UE by therapist, as well as use of positioning (bolster). Elbow ext. Sh abd. Wrist in ext in functional reach pattern. 1 Descriptor R UE TT ROM. *Use of towel and tape for visual target. Sh flex. 2 x 10. Elbow flex. 2 x 10. Sh hor add. 2 x 10. Turned parallel to TT. Sh ext. 2 x 10. Sh abd. 2 x 10. - Assessment Assessment of Improvement Diana was accompanied to OT treatment session by her Harmeet. TIN POT OPERATOR will be reducing frequency to 1 x a month given insurance limitations; Diana sees PT 2 x a week. Will need to monitor # of visits based on 45 PCY insurance limitations. L handed writing legible w/ TIN POT OPERATOR to address handwriting as a form of communication. Presented w/out helmet. Increased number of exercises completed in treatment session w/ good success w/ use of visual aide and towel. Discussed strategies to support carry-over into home environment. Poor weight bearing tolerance w/ R wrist in extension. Overall, good session. Diana would likely benefit from skilled outpatient OT to address right upper extremity ROM, right upper extremity positioning, as well as provide education ( modifications/techniques) to support Diana's ability to engage in meaningful activities in a variety of environments. Home Exercise Program Recommended positioning out of kp pattern while at rest. Recommended completing 2 sets of 10 repetitions of TT arm exercises. Will need to determine if additional visual and written instructions are needed to support carry-over. Will need to monitor amt of exercises versus endurance/to support carry-over. - Plan Therapy Recommendations Continue with Current Program, Advance per Rehabilitation Protocol
--- NOTE | 2022-03-29 13:51 | OT.OP.TRT ---
Visit Care Team Role Provider Type VENKATA Frey Family Provider Advanced Educational Director Primary Care Provider Specialty: Family Practice Address: [address] [place] [address], [facility], [place], [address] Email: [email or web address] Jacinta Diggs MD Attending Provider Non-Staff Referring Provider Specialty: Medical Address: [facility] [place], [address] Email: Occupational Therapy Treatment Note OT Outpatient Treatment Note - Adult Start: 03/09/22 10:18 Freq: Status: Active Protocol: Document 03/29/22 13:39 AMS (Rec: 03/29/22 13:51 AMS [id number]) OT Outpatient Adult Treatment Note Session Time Visit Start Time 09:30 Visit Stop Time 10:28 Total Visit Minutes 58 Visit Information Visit Number 3 Plan of Care Dates 03/09/22 - 06/01/22 Insurance Information [employer] OT; Max 45 Combined PT /OT/JOB ANALYSIS MANAGER Setting Treatment Setting Outpatient Care Visit Type Note Type Treatment Note General Information General Information Diana is a 51 year-old right hand dominant female referred by her PCP, VENKATA Frey, to outpatient OT secondary to ischemic stroke that reportedly occurred in 12/2021 . Diana was accompanied by her , Harmeet. Harmeet assisted w / history intake and answered therapist's questions given Diana's difficulties w/ communication. Diana is currently working w/ outpatient JOB ANALYSIS MANAGER to identify supports for communicating w/ others. PMH: CT Scan at [facility] 12/17/21 = 1. Acute or subacute cerebral ischemia/infarct in the left temporoparietal lobe. 2. Suspect high-grade stenosis or occlusion of a short segment of left M1 segment of the MCA; diminished flow in the left MCA territory. 3. 50% stenosis at origin of the left internal carotid artery; 40% stenosis at origin of the right internal carotid artery origin. 4. No significant disease in cervical vertebral arteries. Medical History significant for HTN and cranioectomy. 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 - Subjective Identification Type Name Identification Reconciled With Medical Record Observations Diana was accompanied by her , Harmeet, to OT treatment session. Patient Expectation/Goals R UE rehabilitation - Objective Objective Measurements Please refer to below for progress towards meeting established OT goals: Short Term Goals 1. Patient will present with improved active range of motion of the right upper extremity. 1a. Patient will demonstrate 10 degrees active right elbow flexion. In Home Sales Representative Goals 1. Patient will be modified independent with execution of right upper extremity home exercise program with support of spouse, family, friends, utilizing provided written and visual instructions from therapist. - Treatment 1 Descriptor Tone management. Proprioceptive input w/ elbow ext and wrist ext sitting w/ bolster on TT. Therapist knee sitting. Ball sitting. CGA w/ s-s (coming into standing at TT). Standing at TT w/ towel x 2 min. Exercises 3 Descriptor UEB seated x 3 minutes. R adaptive glove. 2 Descriptor Passive ROM of R UE by therapist, as well as use of positioning (bolster). Elbow ext. Sh abd. Wrist in ext in functional reach pattern. 1 Descriptor R UE TT ROM. *Use of towel and tape for visual target. Sh flex. 2 x 10. Elbow flex. 2 x 10. Sh hor add. 2 x 10. Turned parallel to TT. Sh ext. 2 x 10. Sh abd. 2 x 10. - Assessment Assessment of Improvement Will need to monitor # of visits based on 45 PCY insurance limitations. Poor weight shifting onto R LE w/ poor tolerance for weight bearing into R hand w/ elbow near full extension; may want to consider seated EOM work for weight bearing given tolerance for modified trunk flexion w/ therapist maintaining R hand on table w/ elbow flex versus standing. Sudanese e-stim to facilitate elbow flexion; 10/10 cycle; 42 intensity. Skin intact pre- and post- treatment; Diana denied pain/discomfort w/ this exercise. Trialed use of ball to support wrist/digit into extension w/ elbow in flexion w/ good tolerance. Discussed strategies to support carry- over into home environment. Poor weight bearing tolerance w/ R wrist in extension. Overall, good session. Diana would likely benefit from skilled outpatient OT to address right upper extremity ROM, right upper extremity positioning, as well as provide education ( modifications/techniques) to support Diana's ability to engage in meaningful activities in a variety of environments. Home Exercise Program Recommended positioning out of kp pattern while at rest. Recommended completing 2 sets of 10 repetitions of TT arm exercises. Will need to determine if additional visual and written instructions are needed to support carry-over. Will need to monitor amt of exercises versus endurance/to support carry-over. - Plan Therapy Recommendations Continue with Current Program, Advance per Rehabilitation Protocol
--- NOTE | 2022-04-06 11:49 | OT.OP.TRT ---
Visit Care Team Role Provider Type VENKATA Frey Family Provider Advanced Ampoule Examiner Primary Care Provider Specialty: Family Practice Address: [address] [place] [address], [facility], [place], [address] Email: [email or web address] Jacinta Diggs MD Attending Provider Non-Staff Referring Provider Specialty: Medical Address: [address] [place], [address] Email: Occupational Therapy Treatment Note OT Outpatient Treatment Note - Adult Start: 03/09/22 10:18 Freq: Status: Active Protocol: Document 04/06/22 11:41 AMS (Rec: 04/06/22 11:49 AMS [id number]) OT Outpatient Adult Treatment Note Session Time Visit Start Time 09:30 Visit Stop Time 10:25 Total Visit Minutes 55 Visit Information Visit Number 4 Plan of Care Dates 03/09/22 - 06/01/22 Insurance Information [employer] OT; Max 45 Combined PT /OT/BUILDING DRAFTER Setting Treatment Setting Outpatient Care Visit Type Note Type Treatment Note General Information General Information Diana is a 51 year-old right hand dominant female referred by her PCP, VENKATA Frey, to outpatient OT secondary to ischemic stroke that reportedly occurred in 12/2021 . Diana was accompanied by her , Harmeet. Harmeet assisted w / history intake and answered therapist's questions given Diana's difficulties w/ communication. Diana is currently working w/ outpatient BUILDING DRAFTER to identify supports for communicating w/ others. PMH: CT Scan at [facility] 12/17/21 = 1. Acute or subacute cerebral ischemia/infarct in the left temporoparietal lobe. 2. Suspect high-grade stenosis or occlusion of a short segment of left M1 segment of the MCA; diminished flow in the left MCA territory. 3. 50% stenosis at origin of the left internal carotid artery; 40% stenosis at origin of the right internal carotid artery origin. 4. No significant disease in cervical vertebral arteries. Medical History significant for HTN and cranioectomy. 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 - Subjective Identification Type Name Identification Reconciled With Medical Record Observations Diana was accompanied by her , Harmeet, to OT treatment session. Diana indicated preference for mat versus tone management at TT or in w/c. Patient Expectation/Goals R UE rehabilitation Patient/Caregiver Compliance with Home Good Exercise Program - Objective Objective Measurements Please refer to below for progress towards meeting established OT goals: Short Term Goals 1. Patient will present with improved active range of motion of the right upper extremity. 1a. Patient will demonstrate 10 degrees active right elbow flexion. Bank Secrecy Act Officer Goals 1. Patient will be modified independent with execution of right upper extremity home exercise program with support of spouse, family, friends, utilizing provided written and visual instructions from therapist. - Treatment 1 Descriptor Tone management. EOM weight bearing. Forearm weight bearing --> midline shift (onto bolster). Exercises 4 Descriptor Supine. PNF diagonal R --> L. Elbow flex. 2 x 10. Muscle tapping to facilitate. Increased activation w/ visual attn/symmetrical execution. 3 Descriptor UEB seated x 3 minutes. R adaptive glove. 2 Descriptor Passive ROM of R UE by therapist. Completed while supine. 'T' chest stretch w/ head turn ; stretch of ant sh/chest. Scapular mobility. 1 Descriptor R UE TT ROM. *Use of towel and tape for visual target. Sh flex. 2 x 10. Elbow flex. 2 x 10. Sh hor add. 2 x 10. Turned parallel to TT. Sh ext. 2 x 10. Sh abd. 2 x 10. - Assessment Assessment of Improvement Will need to monitor # of visits based on 45 Y insurance limitations. (+) preference for EOM tone management versus TT approach to tone management. Diana and spouse were discussing options within the home to execute the exercise. Palestinian e-stim to facilitate elbow flexion; 10/10 cycle; 42 intensity. Skin intact pre- and post- treatment. TB #1 resistance provided x 5 minutes. Diana denied pain/discomfort w/ this exercise. Completed at start of session; rec repeating. CGA w/ w/c <-> EOM transfers. Overall, good session. Diana would likely benefit from skilled outpatient OT to address right upper extremity ROM, right upper extremity positioning, as well as provide education ( modifications/techniques) to support Diana's ability to engage in meaningful activities in a variety of environments. Home Exercise Program Recommend tone management in sitting (increasing trunk forward flexion as tolerated); may benefit from dycem to support positioning of the hand. Will need to determine if additional visual and written instructions are needed to support carry-over. Will need to monitor amt of exercises versus endurance/to support carry-over. - Plan Therapy Recommendations Continue with Current Program, Advance per Rehabilitation Protocol
--- NOTE | 2022-04-12 11:57 | OT.OP.TRT ---
Visit Care Team Role Provider Type VENKATA Frey Family Provider Advanced Student Services Counselor Primary Care Provider Specialty: Family Practice Address: [address] [place] [address], [facility], [place], [address] Email: [email or web address] Jacinta Diggs MD Attending Provider Non-Staff Referring Provider Specialty: Medical Address: [address] [place], [address] Email: Occupational Therapy Treatment Note OT Outpatient Treatment Note - Adult Start: 03/09/22 10:18 Freq: Status: Active Protocol: Document 04/12/22 11:42 AMS (Rec: 04/12/22 11:57 AMS [id number]) OT Outpatient Adult Treatment Note Session Time Visit Start Time 09:30 Visit Stop Time 10:25 Total Visit Minutes 55 Visit Information Visit Number 5 Plan of Care Dates 03/09/22 - 06/01/22 Insurance Information [employer] OT; Max 45 Combined PT /OT/RAZOR SHARPENER Setting Treatment Setting Outpatient Care Visit Type Note Type Treatment Note General Information General Information Diana is a 52 year-old right hand dominant female referred by her PCP, VENKATA Frey, to outpatient OT secondary to ischemic stroke that reportedly occurred in 12/2021 . Diana was accompanied by her , Harmeet. Harmeet assisted w / history intake and answered therapist's questions given Diana's difficulties w/ communication. Diana is currently working w/ outpatient RAZOR SHARPENER to identify supports for communicating w/ others. PMH: CT Scan at [facility] 12/17/21 = 1. Acute or subacute cerebral ischemia/infarct in the left temporoparietal lobe. 2. Suspect high-grade stenosis or occlusion of a short segment of left M1 segment of the MCA; diminished flow in the left MCA territory. 3. 50% stenosis at origin of the left internal carotid artery; 40% stenosis at origin of the right internal carotid artery origin. 4. No significant disease in cervical vertebral arteries. Medical History significant for HTN and cranioectomy. 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 - Subjective Identification Type Name Identification Reconciled With Medical Record Observations Diana was accompanied by her , Harmeet, to OT treatment session. Per Harmeet, Diana's younger has been helping Diana with her arm exercises. Patient Expectation/Goals R UE rehabilitation Patient/Caregiver Compliance with Home Good Exercise Program - Objective Objective Measurements Please refer to below for progress towards meeting established OT goals: Short Term Goals 1. Patient will present with improved active range of motion of the right upper extremity. 1a. Patient will demonstrate 10 degrees active right elbow flexion. Alf Goals 1. Patient will be modified independent with execution of right upper extremity home exercise program with support of spouse, family, friends, utilizing provided written and visual instructions from therapist. - Treatment 1 Descriptor Tone management. EOM weight bearing. Forearm weight bearing --> midline shift (onto bolster). Exercises 4 Descriptor Supine. PNF diagonal R --> L. Elbow flex. 2 x 10. Muscle tapping to facilitate. Increased activation w/ visual attn/symmetrical execution. 2 Descriptor Passive ROM of R UE by therapist. Completed while supine. 'T' chest stretch w/ head turn ; stretch of ant sh/chest. Scapular mobility. PNF diagonals completed by therapist. Facilitation of movements into kp pattern. 1 Descriptor R UE TT ROM. *Use of towel. Sh flex. 2 x 10. Elbow flex. 2 x 10. Sh hor add. 2 x 10. - Assessment Assessment of Improvement Will need to monitor # of visits based on 45 Y insurance limitations. French e-stim to facilitate elbow flexion; 10/10 cycle; 42 decreased to 40 intensity. Skin intact pre- and post- treatment. Diana indicated that she felt her arm for the first time in today's treatment session; recommend repeating supine UE exercises based on feedback, including IR, elbow flex, and forearm pronation. CGA w/ w/c <-> EOM transfers. Overall, good session. Diana would likely benefit from skilled outpatient OT to address right upper extremity ROM, right upper extremity positioning, as well as provide education ( modifications/techniques) to support Diana's ability to engage in meaningful activities in a variety of environments. Home Exercise Program Recommended scapular stretch at TT. Patient and spouse denied need for written and/or visual instructions for HEP. - Plan Therapy Recommendations Continue with Current Program, Advance per Rehabilitation Protocol
--- NOTE | 2022-04-19 11:43 | OT.OP.TRT ---
Visit Care Team Role Provider Type VENKATA Frey Family Provider Advanced Buffet Manager Primary Care Provider Specialty: Family Practice Address: [address] [place] [address], [facility], [place], [address] Email: [email or web address] Jacinta Diggs MD Attending Provider Non-Staff Referring Provider Specialty: Medical Address: [address] [place], [address] Email: Occupational Therapy Treatment Note OT Outpatient Treatment Note - Adult Start: 03/09/22 10:18 Freq: Status: Active Protocol: Document 04/19/22 11:38 AMS (Rec: 04/19/22 11:43 AMS [id number]) OT Outpatient Adult Treatment Note Session Time Visit Start Time 09:30 Visit Stop Time 10:25 Total Visit Minutes 55 Visit Information Visit Number 6 Plan of Care Dates 03/09/22 - 06/01/22 Insurance Information [employer] OT; Max 45 Combined PT /OT/BRILLIANDEER LOPPER Setting Treatment Setting Outpatient Care Visit Type Note Type Treatment Note General Information General Information Diana is a 52 year-old right hand dominant female referred by her PCP, VENKATA Frey, to outpatient OT secondary to ischemic stroke that reportedly occurred in 12/2021 . Diana was accompanied by her , Harmeet. Harmeet assisted w / history intake and answered therapist's questions given Diana's difficulties w/ communication. Diana is currently working w/ outpatient BRILLIANDEER LOPPER to identify supports for communicating w/ others. PMH: CT Scan at [facility] 12/17/21 = 1. Acute or subacute cerebral ischemia/infarct in the left temporoparietal lobe. 2. Suspect high-grade stenosis or occlusion of a short segment of left M1 segment of the MCA; diminished flow in the left MCA territory. 3. 50% stenosis at origin of the left internal carotid artery; 40% stenosis at origin of the right internal carotid artery origin. 4. No significant disease in cervical vertebral arteries. Medical History significant for HTN and cranioectomy. 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 - Subjective Identification Type Name Identification Reconciled With Medical Record Observations Diana was accompanied by her , Harmeet, to OT treatment session. Patient Expectation/Goals R UE rehabilitation Patient/Caregiver Compliance with Home Good Exercise Program - Objective Objective Measurements Please refer to below for progress towards meeting established OT goals: Short Term Goals 1. Patient will present with improved active range of motion of the right upper extremity. 1a. Patient will demonstrate 10 degrees active right elbow flexion. Snf Goals 1. Patient will be modified independent with execution of right upper extremity home exercise program with support of spouse, family, friends, utilizing provided written and visual instructions from therapist. - Treatment 1 Descriptor Tone management. EOM hand WB; trunk flex/ext w/ hand positioned at mat level w/ dycem. EOM R forearm WB w/ dycem; tendency to extend trunk flightly w/ phys assist to facilitate WB thru R LE as well by therapist. Standing at grab bar w/ dycem; worked on L <-> R weight shift in standing at grab bar and slight pull and push. Exercises 4 Descriptor Supine. PNF diagonal R --> L. Elbow flex. 2 x 10. Muscle tapping to facilitate. Increased activation w/ visual attn/symmetrical execution. 2 Descriptor Passive ROM of R UE by therapist. Completed while supine. 'T' chest stretch w/ head turn ; stretch of ant sh/chest. Scapular mobility. PNF diagonals completed by therapist. Facilitation of movements into kp pattern. 1 Descriptor R UE TT ROM. *Use of towel. Sh flex. 2 x 10. Elbow flex. 2 x 10. Sh hor add. 2 x 10. - Assessment Assessment of Improvement Will need to monitor # of visits based on 45 Y insurance limitations. Hungarian e-stim to facilitate elbow flexion; 10/10 cycle; 36 intensity increased to 42. Skin intact pre- and post- treatment. Increasing flexor tone of the UE since time of eval. 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 Introduced grab bar work; (+) response to exercise. Recommend repeating; discussed carry-over into the home. Provided piece of dycem for home use to support carry -over of home exercises and assist w/ bimanual tasks. Overall, good session. Diana would likely benefit from skilled outpatient OT to address right upper extremity ROM, right upper extremity positioning, as well as provide education ( modifications/techniques) to support Diana's ability to engage in meaningful activities in a variety of environments. - Plan Therapy Recommendations Continue with Current Program, Advance per Rehabilitation Protocol
--- NOTE | 2022-04-26 12:04 | OT.OP.TRT ---
Visit Care Team Role Provider Type VENKATA Frey Family Provider Advanced Tagman Primary Care Provider Specialty: Family Practice Address: [address] [place] [address], [facility], [place], [address] Email: [email or web address] Jacinta Diggs MD Attending Provider Non-Staff Referring Provider Specialty: Medical Address: [address] [place], [address] Email: Occupational Therapy Treatment Note OT Outpatient Treatment Note - Adult Start: 03/09/22 10:18 Freq: Status: Active Protocol: Document 04/26/22 11:59 AMS (Rec: 04/26/22 12:04 AMS [id number]) OT Outpatient Adult Treatment Note Session Time Visit Start Time 08:30 Visit Stop Time 09:25 Total Visit Minutes 55 Visit Information Visit Number 7 Plan of Care Dates 03/09/22 - 06/01/22 Insurance Information [employer] OT; Max 45 Combined PT /OT/GROCERY CLERK SELLING Setting Treatment Setting Outpatient Care Visit Type Note Type Treatment Note General Information General Information Diana is a 52 year-old right hand dominant female referred by her PCP, VENKATA Frey, to outpatient OT secondary to ischemic stroke that reportedly occurred in 12/2021 . Diana was accompanied by her , Harmeet. Harmeet assisted w / history intake and answered therapist's questions given Diana's difficulties w/ communication. Diana is currently working w/ outpatient GROCERY CLERK SELLING to identify supports for communicating w/ others. PMH: CT Scan at [facility] 12/17/21 = 1. Acute or subacute cerebral ischemia/infarct in the left temporoparietal lobe. 2. Suspect high-grade stenosis or occlusion of a short segment of left M1 segment of the MCA; diminished flow in the left MCA territory. 3. 50% stenosis at origin of the left internal carotid artery; 40% stenosis at origin of the right internal carotid artery origin. 4. No significant disease in cervical vertebral arteries. Medical History significant for HTN and cranioectomy. 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 - Subjective Identification Type Name Identification Reconciled With Medical Record Observations Diana was accompanied by her , Harmeet, to OT treatment session. Patient Expectation/Goals R UE rehabilitation Patient/Caregiver Compliance with Home Good Exercise Program - Objective Objective Measurements Please refer to below for progress towards meeting established OT goals: Short Term Goals 1. Patient will present with improved active range of motion of the right upper extremity. 1a. Patient will demonstrate 10 degrees active right elbow flexion. Usp Goals 1. Patient will be modified independent with execution of right upper extremity home exercise program with support of spouse, family, friends, utilizing provided written and visual instructions from therapist. - Treatment 1 Descriptor Tone management. EOM hand WB; trunk flex/ext w/ hand positioned at mat level w/ dycem. Standing at horizontal grab bar w/ dycem. L <-> R weight shift. Elbow flex/ext. Push/ pull. Sitting at horizontal. Elbow flex/ext. 2 x 10. Exercises 4 Descriptor Supine. PNF diagonal R --> L. Elbow flex. 2 x 10. Muscle tapping to facilitate. Increased activation w/ visual attn/symmetrical execution. 3 Descriptor Seated. Elbow flex. Muscle tapping. 4 x 10. Sh elevation. 2 x 10. Facilitated by therapist. Scapular retraction/ protraction. 3 x 10. Facilitated by therapist. 2 Descriptor Passive ROM of R UE by therapist. Completed while supine. 'T' chest stretch w/ head turn ; stretch of ant sh/chest. Scapular mobility. PNF diagonals completed by therapist. Facilitation of movements into kp pattern. 1 Descriptor R UE TT ROM. *Use of towel. Sh flex. 2 x 10. Elbow flex. 2 x 10. Sh hor add. 2 x 10. - Assessment Assessment of Improvement Will need to monitor # of visits based on 45 Y insurance limitations. Bermudian e-stim to facilitate elbow flexion; 10/10 cycle; 38 intensity. Skin intact pre- and post- treatment. Increasing flexor tone of the UE since time of eval. Overall , good session. Diana would likely benefit from skilled outpatient OT to address right upper extremity ROM, right upper extremity positioning, as well as provide education ( modifications/techniques) to support Diana's ability to engage in meaningful activities in a variety of environments. Home Exercise Program Recommended scapular stretch at TT. Patient and spouse denied need for written and/or visual instructions for HEP. - Plan Therapy Recommendations Continue with Current Program, Advance per Rehabilitation Protocol
--- NOTE | 2022-05-03 10:55 | OT.OP.TRT ---
Visit Care Team Role Provider Type VENKATA Frey Family Provider Advanced Slasher Tender Primary Care Provider Specialty: Family Practice Address: [facility], [facility], [place], [address] Email: [email or web address] Jacinta Diggs MD Attending Provider Non-Staff Referring Provider Specialty: Medical Address: [address] [place], [address] Email: Occupational Therapy Treatment Note OT Outpatient Treatment Note - Adult Start: 03/09/22 10:18 Freq: Status: Active Protocol: Document 05/03/22 10:38 AMS (Rec: 05/03/22 10:55 AMS [id number]) OT Outpatient Adult Treatment Note Session Time Visit Start Time 08:30 Visit Stop Time 09:25 Visit Information Visit Number 8 Plan of Care Dates 03/09/22 - 06/01/22 Insurance Information [employer] OT; Max 45 Combined PT /OT/MANAGER ENGINE Setting Treatment Setting Outpatient Care Visit Type Note Type Treatment Note General Information General Information Diana is a 52 year-old right hand dominant female referred by her PCP, VENKATA Frey, to outpatient OT secondary to ischemic stroke that reportedly occurred in 12/2021 . Diana was accompanied by her , Harmeet. Harmeet assisted w / history intake and answered therapist's questions given Diana's difficulties w/ communication. Diana is currently working w/ outpatient MANAGER ENGINE to identify supports for communicating w/ others. PMH: CT Scan at [facility] 12/17/21 = 1. Acute or subacute cerebral ischemia/infarct in the left temporoparietal lobe. 2. Suspect high-grade stenosis or occlusion of a short segment of left M1 segment of the MCA; diminished flow in the left MCA territory. 3. 50% stenosis at origin of the left internal carotid artery; 40% stenosis at origin of the right internal carotid artery origin. 4. No significant disease in cervical vertebral arteries. Medical History significant for HTN and cranioectomy. 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 - Subjective Identification Type Name Identification Reconciled With Medical Record Observations Diana was accompanied by her , Harmeet, to OT treatment session. Harmeet has spoken to outpatient PT re: horizontal bar installment. Patient Expectation/Goals R UE rehabilitation Patient/Caregiver Compliance with Home Good Exercise Program - Objective Objective Measurements Please refer to below for progress towards meeting established OT goals: Short Term Goals 1. Patient will present with improved active range of motion of the right upper extremity. 1a. Patient will demonstrate 10 degrees active right elbow flexion. Residential Goals 1. Patient will be modified independent with execution of right upper extremity home exercise program with support of spouse, family, friends, utilizing provided written and visual instructions from therapist. - Treatment 1 Descriptor Tone management. EOM hand WB; trunk flex/ext w/ hand positioned at mat level w/ dycem. 2 x 10. EOM forearm weight bearing w/ bolster. 1 x 10. Standing at horizontal grab bar w/ dycem. L <-> R weight shift. Elbow flex/ext. Push/ pull. Sitting at horizontal. Elbow flex/ext. 2 x 10. Exercises 5 Descriptor Cane exercises seated. Use of dycem. Row/functional reach/scapular mobility. Hips --> knees. 2 x 10. Row/circular movement of cane. 2 x 10. Elbow flex/elbow ext. 2 x 10. 3 Descriptor Seated. Sh elevation. 2 x 10. Facilitated by therapist. Trialed use of visual feedback /mirror. Scapular retraction/ protraction. 3 x 10. Facilitated by therapist. Elbow flexion. 3 x 10. Facilitated by therapist/ muscle tapping. PNF. Executed by therapist. 2 x 10. Sh adduction. 2 x 10. Facilitated by therapist. Forearm pronation. 2 x 10. Facilitated by therapist. Placement of L hand on stomach . 2 x 10. Facilitated by therapist. 1 Descriptor R UE TT ROM. *Use of towel. Sh flex. 2 x 10. Elbow flex. 2 x 10. Sh hor add. 2 x 10. - Assessment Assessment of Improvement Will need to monitor # of visits based on 45 Y insurance limitations; message to front counter clerk staff for scheduling of additional visits through the month of May. Diana's has spoken to outpatient PT re: installement of horizontal grab bar for exercising. Belizean e-stim to facilitate elbow flexion; 10/10 cycle; 40 intensity. Skin intact pre- and post- treatment. Increased success w/ maintaining grasp of cane in sitting w/ use of dycem; discussed that this maybe another option for home practice given the ability to execute elbow flexion/rows ( versus solely TT exercises). Per Harmeet, Diana has no h/o injury/nerve impingement to the L distal UE. Discussed risk for over-use given increased reliance on L UE for all functional tasks. Overall , good session. Diana would likely benefit from skilled outpatient OT to address right upper extremity ROM, right upper extremity positioning, as well as provide education ( modifications/techniques) to support Diana's ability to engage in meaningful activities in a variety of environments. - Plan Therapy Recommendations Continue with Current Program, Advance per Rehabilitation Protocol
--- NOTE | 2022-05-10 11:01 | OT.OP.TRT ---
Visit Care Team Role Provider Type VENKATA Frey Family Provider Advanced Emergency Management Specialist Primary Care Provider Specialty: Family Practice Address: [address] [place] [address], [facility], [place], [address] Email: [email or web address] Jacinta Diggs MD Attending Provider Non-Staff Referring Provider Specialty: Medical Address: [address] [place], [address] Email: Occupational Therapy Treatment Note OT Outpatient Treatment Note - Adult Start: 03/09/22 10:18 Freq: Status: Active Protocol: Document 05/10/22 10:54 AMS (Rec: 05/10/22 11:00 AMS [id number]) OT Outpatient Adult Treatment Note Session Time Visit Start Time 08:30 Visit Stop Time 09:25 Total Visit Minutes 55 Visit Information Visit Number 10 Plan of Care Dates 03/09/22 - 06/01/22 Insurance Information [employer] OT; Max 45 Combined PT /OT/TUBE KNITTER Setting Treatment Setting Outpatient Care Visit Type Note Type Treatment Note General Information General Information Diana is a 52 year-old right hand dominant female referred by her PCP, VENKATA Frey, to outpatient OT secondary to ischemic stroke that reportedly occurred in 12/2021 . Diana was accompanied by her , Harmeet. Harmeet assisted w / history intake and answered therapist's questions given Diana's difficulties w/ communication. Diana is currently working w/ outpatient TUBE KNITTER to identify supports for communicating w/ others. PMH: CT Scan at [facility] 12/17/21 = 1. Acute or subacute cerebral ischemia/infarct in the left temporoparietal lobe. 2. Suspect high-grade stenosis or occlusion of a short segment of left M1 segment of the MCA; diminished flow in the left MCA territory. 3. 50% stenosis at origin of the left internal carotid artery; 40% stenosis at origin of the right internal carotid artery origin. 4. No significant disease in cervical vertebral arteries. Medical History significant for HTN and cranioectomy. 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 - Subjective Identification Type Name Identification Reconciled With Medical Record Observations Diana was accompanied by her [id number] to OT treatment session, as well as her , Harmeet, to portion of session. Installation of horizontal grab bar in the home has occurred. Patient Expectation/Goals R UE rehabilitation Patient/Caregiver Compliance with Home Good Exercise Program - Objective Objective Measurements Please refer to below for progress towards meeting established OT goals: Short Term Goals 1. Patient will present with improved active range of motion of the right upper extremity. 1a. Patient will demonstrate 10 degrees active right elbow flexion. Patient Coordinator Goals 1. Patient will be modified independent with execution of right upper extremity home exercise program with support of spouse, family, friends, utilizing provided written and visual instructions from therapist. - Treatment 1 Descriptor Tone management. EOM hand WB; trunk flex/ext w/ hand positioned at mat level w/ dycem. 2 x 10. EOM forearm weight bearing w/ bolster. 1 x 10. Standing at horizontal grab bar w/ dycem. L <-> R weight shift. Elbow flex/ext. Push/ pull. Sitting at horizontal. Elbow flex/ext. 2 x 10. Exercises 5 Descriptor Cane exercises seated. Use of dycem. Row/functional reach/scapular mobility. Hips --> knees. 2 x 10. Row/circular movement of cane. 2 x 10. Elbow flex/elbow ext. 2 x 10. 4 Descriptor Self-ROM. Clasped hands. Elbow flex/ext. Functional reach. 2 x 10. 3 Descriptor Seated. Sh elevation. 2 x 10. Facilitated by therapist. Trialed use of visual feedback /mirror. Scapular retraction/ protraction. 3 x 10. Facilitated by therapist. Elbow flexion. 3 x 10. Facilitated by therapist/ muscle tapping. PNF. Executed by therapist. 2 x 10. N/A 05/10/22 Sh adduction. 2 x 10. Facilitated by therapist. Forearm pronation. 2 x 10. Facilitated by therapist. Placement of L hand on stomach . 2 x 10. Facilitated by therapist. - Assessment Assessment of Improvement Croatian e-stim to facilitate elbow flexion; 10/10 cycle; 48 intensity. Skin intact pre- and post- treatment. Introduced self-UE ROM utlizing clasped hands; focus on elbow flex/ext and functional movement pattern w/ scapular mobility. Discussed options for home e-stim unit; recommended unit that could be used for UE and LE; recommended consulting w/ PT for feedback. Family to look at [employer] website. Recommend providing written and visual instructions to Diana and family at next session. Overall, good session. Diana would likely benefit from skilled outpatient OT to address right upper extremity ROM, right upper extremity positioning, as well as provide education ( modifications/techniques) to support Diana's ability to engage in meaningful activities in a variety of environments. Home Exercise Program Recommended self ROM (with focus on elbow flexion/ extension and functional reach /scapular retraction/ protraction). - Plan Therapy Recommendations Continue with Current Program, Advance per Rehabilitation Protocol
--- NOTE | 2022-05-17 11:52 | OT.OP.TRT ---
Visit Care Team Role Provider Type VENKATA Frey Family Provider Advanced Games Dealer Primary Care Provider Specialty: Family Practice Address: [address] [place] [address], [facility], [place], [address] Email: [email or web address] Jacinta Diggs MD Attending Provider Non-Staff Referring Provider Specialty: Medical Address: [address] [place], [address] Email: Occupational Therapy Treatment Note OT Outpatient Treatment Note - Adult Start: 03/09/22 10:18 Freq: Status: Active Protocol: Document 05/17/22 11:43 AMS (Rec: 05/17/22 11:52 AMS [id number]) OT Outpatient Adult Treatment Note Session Time Visit Start Time 08:30 Visit Stop Time 09:25 Total Visit Minutes 55 Visit Information Visit Number 11 Plan of Care Dates 03/09/22 - 06/01/22 Insurance Information [employer] OT; Max 45 Combined PT /OT/CHICKEN PICKER Setting Treatment Setting Outpatient Care Visit Type Note Type Treatment Note General Information General Information Diana is a 52 year-old right hand dominant female referred by her PCP, VENKATA Frey, to outpatient OT secondary to ischemic stroke that reportedly occurred in 12/2021 . Diana was accompanied by her , Harmeet. Harmeet assisted w / history intake and answered therapist's questions given Diana's difficulties w/ communication. Diana is currently working w/ outpatient CHICKEN PICKER to identify supports for communicating w/ others. PMH: CT Scan at [facility] 12/17/21 = 1. Acute or subacute cerebral ischemia/infarct in the left temporoparietal lobe. 2. Suspect high-grade stenosis or occlusion of a short segment of left M1 segment of the MCA; diminished flow in the left MCA territory. 3. 50% stenosis at origin of the left internal carotid artery; 40% stenosis at origin of the right internal carotid artery origin. 4. No significant disease in cervical vertebral arteries. Medical History significant for HTN and cranioectomy. 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 - Subjective Identification Type Name Identification Reconciled With Medical Record Observations Diana was accompanied by her [id number] and , Harmeet, to OT treatment session. Patient Expectation/Goals R UE rehabilitation Patient/Caregiver Compliance with Home Good Exercise Program - Objective Objective Measurements Please refer to below for progress towards meeting established OT goals: Short Term Goals 1. Patient will present with improved active range of motion of the right upper extremity. 1a. Patient will demonstrate 10 degrees active right elbow flexion. Gang Head Saw Operator Goals 1. Patient will be modified independent with execution of right upper extremity home exercise program with support of spouse, family, friends, utilizing provided written and visual instructions from therapist. - Treatment 1 Descriptor Tone management. EOM hand WB; trunk flex/ext w/ hand positioned at mat level w/ dycem. 2 x 10. EOM forearm weight bearing w/ bolster. 2 x 10. Static sitting/good posture. Hand positioned at hip level w / dycem. Weight shifting w/ therapist facilitating elbow extension. 2 x 10. s-s at EOM w/ holding onto B handles of w/c. L <-> R weight shift. N/A 05/17/22 = Sitting at horizontal. Elbow flex/ext. 2 x 10. Exercises 4 Descriptor Self-ROM. Clasped hands. Elbow flex/ext. Functional reach. 2 x 10. 3 Descriptor Seated. Sh elevation. 2 x 10. Facilitated by therapist. Trialed use of visual feedback /mirror. Scapular retraction/ protraction. 3 x 10. Facilitated by therapist. Elbow flexion. 3 x 10. Facilitated by therapist/ muscle tapping. PNF. Executed by therapist. 2 x 10. N/A 05/10/22 Sh adduction. 2 x 10. Facilitated by therapist. Forearm pronation. 2 x 10. Facilitated by therapist. Placement of L hand on stomach . 2 x 10. Facilitated by therapist. - Assessment Assessment of Improvement Burundian e-stim to facilitate elbow flexion; 12/13 cycle; 42 intensity. Skin intact pre- and post- treatment. Reviewed HEP; introduced weight bearing w/ hand positioned near hip when seated; able to tolerate short period of time. Previously unable to tolerate this weight bearing position. Recommended family request rx from MD given seeing MD after OT appt for home e-stim unit; provided outpatient card for therapist contact information; recommended contacting [facility] to determine if there is a rep locally to go thru fit and application. Trialed standing w/ grasping of w/c handlebars; use of dycem and CGA to min phys assist to facilitate R wt shift for UE; poor weight shifting onto R LE noted (PT actively addressing this w/ treatment). Recommend working on WB at mat level and transitioning to WB at TT as able/tolerated. Overall, good session. Diana would likely benefit from skilled outpatient OT to address right upper extremity ROM, right upper extremity positioning, as well as provide education ( modifications/techniques) to support Diana's ability to engage in meaningful activities in a variety of environments. Home Exercise Program Provided with visual and written instructions for HEP; reviewed in session w/ mother- in-law//and with Diana. To be scanned into EMR when commercial front load operator staff are able to do so. - Plan Therapy Recommendations Continue with Current Program, Advance per Rehabilitation Protocol
--- NOTE | 2022-05-24 09:54 | OT.OP.TRT ---
Visit Care Team Role Provider Type VENKATA Frey Family Provider Advanced Nonprofit Director Primary Care Provider Specialty: Family Practice Address: [address] [place] [address], [facility], [place], [address] Email: [email or web address] Jacinta Diggs MD Attending Provider Non-Staff Referring Provider Specialty: Medical Address: [address] [place], [address] Email: Occupational Therapy Treatment Note OT Outpatient Treatment Note - Adult Start: 03/09/22 10:18 Freq: Status: Active Protocol: Document 05/24/22 09:44 AMS (Rec: 05/24/22 09:54 AMS [id number]) OT Outpatient Adult Treatment Note Session Time Visit Start Time 08:30 Visit Stop Time 09:25 Total Visit Minutes 55 Visit Information Visit Number [id number] Plan of Care Dates 03/09/22 - 06/01/22 Insurance Information [employer] OT; Max 45 Combined PT /OT/FUEL ISLAND ATTENDANT Setting Treatment Setting Outpatient Care Visit Type Note Type Treatment Note General Information General Information Diana is a 52 year-old right hand dominant female referred by her PCP, VENKATA Frey, to outpatient OT secondary to ischemic stroke that reportedly occurred in 12/2021 . Diana was accompanied by her , Harmeet. Harmeet assisted w / history intake and answered therapist's questions given Diana's difficulties w/ communication. Diana is currently working w/ outpatient FUEL ISLAND ATTENDANT to identify supports for communicating w/ others. PMH: CT Scan at [facility] 12/17/21 = 1. Acute or subacute cerebral ischemia/infarct in the left temporoparietal lobe. 2. Suspect high-grade stenosis or occlusion of a short segment of left M1 segment of the MCA; diminished flow in the left MCA territory. 3. 50% stenosis at origin of the left internal carotid artery; 40% stenosis at origin of the right internal carotid artery origin. 4. No significant disease in cervical vertebral arteries. Medical History significant for HTN and cranioectomy. 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 - Subjective Identification Type Name Identification Reconciled With Medical Record Observations Diana was accompanied by her [id number] and , Harmeet, to OT treatment session. Patient Expectation/Goals R UE rehabilitation Patient/Caregiver Compliance with Home Good Exercise Program - Objective Objective Measurements Please refer to below for progress towards meeting established OT goals: Short Term Goals 1. Patient will present with improved active range of motion of the right upper extremity. 1a. Patient will demonstrate 10 degrees active right elbow flexion. Meat Stocker Goals 1. Patient will be modified independent with execution of right upper extremity home exercise program with support of spouse, family, friends, utilizing provided written and visual instructions from therapist. - Treatment 1 Descriptor Tone management. EOM hand WB; trunk flex/ext w/ hand positioned at mat level w/ dycem. 2 x 10. EOM hand WB; hand positioned at hip left. Weight shifting forward <-> back, L<-> R w/ therapist facilitating elbow extension. 2 x 10. Sitting in chair w/ bilateral arm rests. R hand positioned on arm rest. Trunk flex. 3 x 10. s-s at EOM w/ hands positioned on TT. Lowering of TT to encourage WB into R arm. Forward <-> back, L <-> R weight shift. 3 x 10. s-s at EOM w/ holding onto B handles of w/c. Forward <-> back and L <-> R weight shift. 3 x 10. N/A 05/17/22 = Sitting at horizontal. Elbow flex/ext. 2 x 10. Exercises 4 Descriptor Self-ROM. Clasped hands. Elbow flex/ext. Functional reach. 2 x 10. 3 Descriptor Seated. Sh elevation. 2 x 10. Facilitated by therapist. Trialed use of visual feedback /mirror. Scapular retraction/ protraction. 3 x 10. Facilitated by therapist. Elbow flexion. 3 x 10. Facilitated by therapist/ muscle tapping. PNF. Executed by therapist. 2 x 10. N/A 05/10/22 Sh adduction. 2 x 10. Facilitated by therapist. Forearm pronation. 2 x 10. Facilitated by therapist. Placement of L hand on stomach . 2 x 10. Facilitated by therapist. - Assessment Assessment of Improvement Pakistani e-stim to facilitate elbow flexion x 10 minutes total; 10/10 cycle; 40 intensity; use of 1# ankle weight x 8 minutes. Skin intact pre- and post- treatment. Improving weight bearing tolerance thru the R UE; able to tolerate TT weight bearing w/ TT at various levels w/ weight shift front < -> back, L <-> R, as well as caesar R hand positioned on arm rest w/ dycem w/ trunk flex/ ext in chair w/ bilateral arm rests. Use of bolster to support facilitation of elbow flex w/ muscle tapping. Recommend supporting functional independence w/ positioning of hand flat on TT surface; recommend monitoring R sh pain/discomfort. Recommend advancing TT WB (and /or use of mat). Overall, good session. Diana would likely benefit from skilled outpatient OT to address right upper extremity ROM, right upper extremity positioning, as well as provide education ( modifications/techniques) to support Diana's ability to engage in meaningful activities in a variety of environments. Home Exercise Program Recommended home e-stim unit bundle without glove to support application to UE and LE; discussed varying sizes of e-stim pads. Discussed potential sling use given g/h subluxation; no c/o pain/ discomfort of R sh at this time. - Plan Therapy Recommendations Continue with Current Program, Advance per Rehabilitation Protocol
--- NOTE | 2022-05-31 10:51 | OT.OPPN ---
Current Diagnoses Cerebral infarction, unspecified (05/31/22) Other lack of coordination (05/31/22) Weakness (05/31/22) OT Progress Note OT Outpatient Treatment Note - Adult Start: 03/09/22 10:18 Freq: Status: Active Protocol: Document 05/31/22 10:36 AMS (Rec: 05/31/22 10:51 AMS [id number]) OT Outpatient Adult Treatment Note Session Time Visit Start Time 08:30 Visit Stop Time 09:25 Total Visit Minutes 55 Visit Information Visit Number [id number] Plan of Care Dates 05/31/22 - 08/23/22 Insurance Information [employer] OT; Max 45 Combined PT /OT/FOREIGN CORRESPONDENT Setting Treatment Setting Outpatient Care Visit Type Note Type Progress Note General Information General Information Diana is a 52 year-old right hand dominant female referred by her PCP, VENKATA Frey, to outpatient OT secondary to ischemic stroke that reportedly occurred in 12/2021 . Diana was accompanied by her , Harmeet. Harmeet assisted w / history intake and answered therapist's questions given Diana's difficulties w/ communication. Diana is currently working w/ outpatient FOREIGN CORRESPONDENT to identify supports for communicating w/ others. PMH: CT Scan at [facility] 12/17/21 = 1. Acute or subacute cerebral ischemia/infarct in the left temporoparietal lobe. 2. Suspect high-grade stenosis or occlusion of a short segment of left M1 segment of the MCA; diminished flow in the left MCA territory. 3. 50% stenosis at origin of the left internal carotid artery; 40% stenosis at origin of the right internal carotid artery origin. 4. No significant disease in cervical vertebral arteries. Medical History significant for HTN and cranioectomy. 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 - Subjective Identification Type Name Identification Reconciled With Medical Record Observations Diana was accompanied by her [id number] and , Harmeet, to OT treatment session. Patient Expectation/Goals R UE rehabilitation Patient/Caregiver Compliance with Home Good Exercise Program - Objective Objective Measurements Please refer to below for progress towards meeting established OT goals: Short Term Goals 1. Patient will present with improved active range of motion of the right upper extremity. 1a. Patient will demonstrate 10 degrees active right elbow flexion. 05/31/22 = 10 degrees observed w/ moving R UE in kp pattern w/ compensatory strategies. Quality Assurance Director Goals 1. Patient will be modified independent with execution of right upper extremity home exercise program with support of spouse, family, friends, utilizing provided written and visual instructions from therapist. = 50% met - Treatment 1 Descriptor Tone management. EOM hand WB; trunk flex/ext w/ hand positioned at mat level w/ dycem. 2 x 10. EOM hand WB; hand positioned posterior to hip. Weight shifting forward <-> back, L<- > R w/ therapist facilitating elbow extension. 2 x 10. s-s at EOM w/ holding onto B handles of w/c. Forward <-> back and L <-> R weight shift. 3 x 10. EOM hand WB w/ wrist in ext w/ use of ball to permit slight curvature of digits distally. 2 x 10. N/A 05/17/22 = Sitting at horizontal. Elbow flex/ext. 2 x 10. Exercises 5 Descriptor Pendulum. Movement into kp pattern. Blocking of UE provided by therapist for safety reasons. 4 Descriptor Self-ROM. Clasped hands. Elbow flex/ext. Functional reach. 2 x 10. 3 Descriptor Seated. Sh elevation. 2 x 10. Facilitated by therapist. Trialed use of visual feedback /mirror. Scapular retraction/ protraction. 3 x 10. Facilitated by therapist. Elbow flexion. 3 x 10. Facilitated by therapist/ muscle tapping. PNF. Executed by therapist. 2 x 10. N/A 05/10/22 Sh adduction. 2 x 10. Facilitated by therapist. Forearm pronation. 2 x 10. Facilitated by therapist. Placement of L hand on stomach . 2 x 10. Facilitated by therapist. 2 Descriptor Cane exercises. Use of dycem. Elbow flex/ext. 2 x 10. Modified row (to bilateral distal knees). 2 x 10. - Assessment Assessment of Improvement Diana has made progress over- the-last certification period relative to her right upper extremity tolerance for weight bearing; with preparatory seated weight bearing exercises (EOM --> trunk flex/ ext and w/ hand positioned at right hip trunk flex/ext), she is tolerating TT weight bearing through the R hand w/ assist for maintaining elbow extension and wrist in extension. She was also able to tolerate weight bearing w/ hand positioned on ball w/ elbow and wrist in extension ( with slight curvature of distal digits) for the first time in today's treatment session. There is increasing tone of the R UE with elbow flexion being observed w/ arm being moved into typical kp pattern. Diana would likely benefit from skilled outpatient OT to address right upper extremity ROM, right upper extremity positioning, as well as provide education ( modifications/techniques) to support Diana's ability to engage in meaningful activities in a variety of environments. Given insurance limitations recommend reducing frequency to 1 x every other week to conserve visits/ overall length of treatment. Spouse in agreement to this change in POC. Cypriot e-stim used to facilitate elbow flexion x 10 minutes total; 10/10 cycle; 40 intensity; use of 1# ankle weight x 10 minutes. Skin intact pre- and post- treatment. Overall, good session. Dinaa would likely benefit from skilled outpatient OT to address right upper extremity ROM, right upper extremity positioning, as well as provide education ( modifications/techniques) to support Diana's ability to engage in meaningful activities in a variety of environments. Home Exercise Program Reviewed weight bearing/tone management exercises; recommended use of dycem ( seated on firm surface) w/ hand near ipsilateral knee versus hip, as well as standing w/ hand positioned on horizontal grab bar and/or w/ c handle. Discussed use of firm chair or changes to w/c to accommodate weight bearing. Reviewed cane recommendations (elbow flex/ext, modified row ); demonstrated pendulum exercise and safety recommendations. Recommended that the patient/family invest in personal home e-stim unit to increase frequency of administration. Recommended home e-stim unit bundle without glove to support application to UE and LE; discussed varying sizes of e-stim pads. Discussed potential sling use given g/h subluxation; no c/o pain/ discomfort of R sh at this time. - Plan Therapy Recommendations Continue with Current Program, Advance per Rehabilitation Protocol Additional Therapy Recommendations Monitor insurance limitations Comment 12 weeks Comment 1 x every other week Therapeutic Contents Active Range of Motion, Adaptive Equipment Education, Client Education,Cognitive Skills Development,Functional Activities,Home Exercise Program,Joint Protection, Manual Therapy,Education, Neurodevelopment Treatment, Neuromuscular Re-Education, Self-Care,Therapeutic Activities,Therapeutic Exercises,Modalities,Sensory Re-education Modalities As Needed,As Prescribed Additional Types of Modalities e-stim, US, heat, ice, contrast If you are in agreement with this Plan of Care, please return a signed and dated copy. I have reviewed this Plan of Care and certify that the skilled therapy services above are required to meet the patient?s needs. Physician Signature Date Printed Name and Credentials Clinical Instructor Signature Printed Name and Credentials
--- NOTE | 2022-06-14 12:41 | OT.OP.TRT ---
Visit Care Team Role Provider Type VENKATA rFey Family Provider Advanced Garment Sorter Primary Care Provider Specialty: Family Practice Address: [address] [place] [address], [facility] [address], [place], [address] Email: [email or web address] Jacinta Diggs MD Attending Provider Non-Staff Referring Provider Specialty: Medical Address: [facility] [place], [address] Email: Occupational Therapy Treatment Note OT Outpatient Treatment Note - Adult Start: 03/09/22 10:18 Freq: Status: Active Protocol: Document 06/14/22 12:33 AMS (Rec: 06/14/22 12:41 AMS [id number]) OT Outpatient Adult Treatment Note Session Time Visit Start Time 08:30 Visit Stop Time 09:25 Total Visit Minutes 55 Visit Information Visit Number 14 Plan of Care Dates 05/31/22 - 08/23/22 Insurance Information [employer] OT; Max 45 Combined PT /OT/PROCESS TREATER Setting Treatment Setting Outpatient Care Visit Type Note Type Treatment Note General Information General Information Diana is a 52 year-old right hand dominant female referred by her PCP, VENKATA Frey, to outpatient OT secondary to ischemic stroke that reportedly occurred in 12/2021 . Diana was accompanied by her , Harmeet. Harmeet assisted w / history intake and answered therapist's questions given Diana's difficulties w/ communication. Diana is currently working w/ outpatient PROCESS TREATER to identify supports for communicating w/ others. PMH: CT Scan at [facility] 12/17/21 = 1. Acute or subacute cerebral ischemia/infarct in the left temporoparietal lobe. 2. Suspect high-grade stenosis or occlusion of a short segment of left M1 segment of the MCA; diminished flow in the left MCA territory. 3. 50% stenosis at origin of the left internal carotid artery; 40% stenosis at origin of the right internal carotid artery origin. 4. No significant disease in cervical vertebral arteries. Medical History significant for HTN and cranioectomy. 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 - Subjective Identification Type Name Identification Reconciled With Medical Record Observations Diana was accompanied by her exfywq-ao-pan and , Harmeet, to OT treatment session. Patient Expectation/Goals R UE rehabilitation Patient/Caregiver Compliance with Home Good Exercise Program - Objective Objective Measurements Please refer to below for progress towards meeting established OT goals: Short Term Goals 1. Patient will present with improved active range of motion of the right upper extremity. 1a. Patient will demonstrate 10 degrees active right elbow flexion. 05/31/22 = 10 degrees observed w/ moving R UE in kp pattern w/ compensatory strategies. Jail Goals 1. Patient will be modified independent with execution of right upper extremity home exercise program with support of spouse, family, friends, utilizing provided written and visual instructions from therapist. = 50% met - Treatment 1 Descriptor Tone management. EOM hand WB; trunk flex/ext w/ hand positioned at mat level w/ dycem. 2 x 10. EOM hand WB; hand positioned posterior to hip. Weight shifting forward < -> back. 2 x 10. s-s at EOM w/ holding onto B handles of w/c. Forward <-> back and L <-> R weight shift. 3 x 10. EOM hand WB w/ wrist in ext w/ transition to bolster to permit slight curvature of digits distally. 2 x 10. EOM L <-> R scoot. N/A 05/17/22 = Sitting at horizontal. Elbow flex/ext. 2 x 10. Exercises 5 Descriptor Pendulum. Movement into kp pattern. Blocking of UE provided by therapist for safety reasons. 4 Descriptor Self-ROM. Clasped hands. Elbow flex/ext. Functional reach. 2 x 10. 3 Descriptor Seated. Sh elevation. 2 x 10. Facilitated by therapist. Scapular retraction/ protraction. 3 x 10. Facilitated by therapist. Elbow flexion. 3 x 10. Facilitated by therapist/ muscle tapping. PNF. Executed by therapist. 2 x 10. N/A 05/10/22 Sh adduction. 2 x 10. Facilitated by therapist. Forearm pronation. 2 x 10. Facilitated by therapist. Placement of L hand on stomach . 2 x 10. Facilitated by therapist. 2 Descriptor Cane exercises. Use of dycem. Elbow flex/ext. 2 x 10. Modified row (to bilateral distal knees). 2 x 10. 1 Descriptor R UE TT ROM. *Use of towel. Sh flex. 2 x 10. Elbow flex. 2 x 10. Sh hor add. 2 x 10. - Assessment Assessment of Improvement Increasing tone of the R UE with elbow flexion w/ movement into typical kp pattern. Report of home e-stim unit to arrive today. Diana is seeking out additional support w/ home execution of exercises; will follow-up w/ family. Monegasque e -stim to facilitate elbow flexion; x 10 minutes; 10/10 cycle; 38 intensity. 1# ankle weight. Skin intact pre- and post- treatment. Introduced EOM L <-> R scoot; tendency to lean to L when scooting to R; environmental modification to support weight shift to R. Recommend repeating w/ attempt to limit movement of hands and feet. Overall, good session. Diana would likely benefit from skilled outpatient OT to address right upper extremity ROM, right upper extremity positioning, as well as provide education ( modifications/techniques) to support Diana's ability to engage in meaningful activities in a variety of environments. Given insurance limitations recommend reducing frequency to 1 x every other week to conserve visits/ overall length of treatment. Spouse in agreement to this change in POC. Monegasque e-stim used to facilitate elbow flexion x 10 minutes total; 10/10 cycle; 40 intensity; use of 1# ankle weight x 10 minutes. Skin intact pre- and post- treatment. Overall, good session. Diana would likely benefit from skilled outpatient OT to address right upper extremity ROM, right upper extremity positioning, as well as provide education ( modifications/techniques) to support Diana's ability to engage in meaningful activities in a variety of environments. Home Exercise Program 06/14/22 = Rec L <-> R scoot to encourage WB into R hand. Cont w/ weight bearing in sitting/standing and wrist in ext as tolerated. - Plan Therapy Recommendations Continue with Current Program, Advance per Rehabilitation Protocol Additional Therapy Recommendations Monitor insurance limitations
--- NOTE | 2022-06-28 15:30 | OT.OP.TRT ---
Visit Care Team Role Provider Type VENKATA Frey Family Provider Advanced Machine Feeder Primary Care Provider Specialty: Family Practice Address: [facility], [facility] [address], [place], [address] Email: [email or web address] Jacinta Diggs MD Attending Provider Non-Staff Referring Provider Specialty: Medical Address: [address] [place], [address] Email: Occupational Therapy Treatment Note OT Outpatient Treatment Note - Adult Start: 03/09/22 10:18 Freq: Status: Active Protocol: Document 06/28/22 15:30 AMS (Rec: 06/29/22 09:15 AMS [id number]) OT Outpatient Adult Treatment Note Session Time Visit Start Time 08:30 Visit Stop Time 09:25 Total Visit Minutes 55 Visit Information Visit Number 15 Plan of Care Dates 05/31/22 - 08/23/22 Insurance Information [employer] OT; Max 45 Combined PT /OT/SHIP PURSER Setting Treatment Setting Outpatient Care Visit Type Note Type Treatment Note General Information General Information Diana is a 52 year-old right hand dominant female referred by her PCP, VENKATA Frey, to outpatient OT secondary to ischemic stroke that reportedly occurred in 12/2021 . Diana was accompanied by her , Harmeet. Harmeet assisted w / history intake and answered therapist's questions given Diana's difficulties w/ communication. Diana is currently working w/ outpatient SHIP PURSER to identify supports for communicating w/ others. PMH: CT Scan at [facility] 12/17/21 = 1. Acute or subacute cerebral ischemia/infarct in the left temporoparietal lobe. 2. Suspect high-grade stenosis or occlusion of a short segment of left M1 segment of the MCA; diminished flow in the left MCA territory. 3. 50% stenosis at origin of the left internal carotid artery; 40% stenosis at origin of the right internal carotid artery origin. 4. No significant disease in cervical vertebral arteries. Medical History significant for HTN and cranioectomy. 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 - Subjective Identification Type Name Identification Reconciled With Medical Record Observations Diana was accompanied by , Harmeet, and Madonna (for training) to OT treatment session. [facility]. Patient Expectation/Goals R UE rehabilitation Patient/Caregiver Compliance with Home Good Exercise Program - Objective Objective Measurements Please refer to below for progress towards meeting established OT goals: Short Term Goals 1. Patient will present with improved active range of motion of the right upper extremity. 1a. Patient will demonstrate 10 degrees active right elbow flexion. 05/31/22 = 10 degrees observed w/ moving R UE in kp pattern w/ compensatory strategies. Retirement Goals 1. Patient will be modified independent with execution of right upper extremity home exercise program with support of spouse, family, friends, utilizing provided written and visual instructions from therapist. = 50% met - Treatment 1 Descriptor Tone management. EOM hand WB; trunk flex/ext w/ hand positioned at mat level w/ dycem. 2 x 10. EOM hand WB; hand positioned posterior to hip. Weight shifting forward < -> back. 2 x 10. s-s at EOM w/ holding onto B handles of w/c. Forward <-> back and L <-> R weight shift. 3 x 10. EOM L <-> R scoot. 1 x 10. s-s in chair w/ bilateral arm rests. 1 x 10. N/A 05/17/22 = Sitting at horizontal. Elbow flex/ext. 2 x 10. Exercises 5 Descriptor Pendulum. Movement into kp pattern. Blocking of UE provided by therapist for safety reasons. 4 Descriptor Self-ROM. Clasped hands. Elbow flex/ext. Functional reach. 2 x 10. 3 Descriptor Seated. Sh elevation. 2 x 10. Facilitated by therapist. Scapular retraction/ protraction. 3 x 10. Facilitated by therapist. Elbow flexion. 3 x 10. Facilitated by therapist/ muscle tapping. PNF. Executed by therapist. 2 x 10. N/A 05/10/22 Sh adduction. 2 x 10. Facilitated by therapist. Forearm pronation. 2 x 10. Facilitated by therapist. Placement of L hand on stomach . 2 x 10. Facilitated by therapist. - Assessment Assessment of Improvement Diana was accompanied to treatment session by , Harmeet, and Madonna who will likely providing Diana with additional support w/ home execution of exercises. Iraqi e-stim to facilitate elbow flexion; x 10 minutes; 10/10 cycle; 46 intensity. Skin intact pre- and post- treatment. No c/o pain/discomfort. Revisited EOM L <-> R scooting; decreased cueing and environmental modifications to support weight shift to the right. Introduced chair push-up with WB thru the R UE; good tolerance. Will need to provide education for home e- stim unit. Overall, good session. Diana would likely benefit from skilled outpatient OT to address right upper extremity ROM, right upper extremity positioning, as well as provide education ( modifications/techniques) to support Diana's ability to engage in meaningful activities in a variety of environments. Given insurance limitations recommend reducing frequency to 1 x every other week to conserve visits/ overall length of treatment. Spouse in agreement to this change in POC. Iraqi e-stim used to facilitate elbow flexion x 10 minutes total; 10/10 cycle; 40 intensity; use of 1# ankle weight x 10 minutes. Skin intact pre- and post- treatment. Overall, good session. Diana would likely benefit from skilled outpatient OT to address right upper extremity ROM, right upper extremity positioning, as well as provide education ( modifications/techniques) to support Diana's ability to engage in meaningful activities in a variety of environments. Home Exercise Program 06/14/22 = Rec L <-> R scoot to encourage WB into R hand. Cont w/ weight bearing in sitting/standing and wrist in ext as tolerated. - Plan Therapy Recommendations Continue with Current Program, Advance per Rehabilitation Protocol Additional Therapy Recommendations Monitor insurance limitations
--- NOTE | 2022-07-12 10:31 | OT.OP.TRT ---
Visit Care Team Role Provider Type VENKATA Frey Family Provider Advanced Panelbeater Primary Care Provider Specialty: Family Practice Address: [address] [place] [address], [facility], [place], [address] Email: [email or web address] Jacinta Diggs MD Attending Provider Non-Staff Referring Provider Specialty: Medical Address: [address] [place], [address] Email: Occupational Therapy Treatment Note OT Outpatient Treatment Note - Adult Start: 03/09/22 10:18 Freq: Status: Active Protocol: Document 07/12/22 10:24 AMS (Rec: 07/12/22 10:31 AMS [id number]) OT Outpatient Adult Treatment Note Session Time Visit Start Time 08:30 Visit Stop Time 09:25 Total Visit Minutes 55 Visit Information Visit Number 15 Plan of Care Dates 05/31/22 - 08/23/22 Insurance Information [employer] OT; Max 45 Combined PT /OT/FUR BUYER Setting Treatment Setting Outpatient Care Visit Type Note Type Treatment Note General Information General Information Diana is a 52 year-old right hand dominant female referred by her PCP, VENKATA Frey, to outpatient OT secondary to ischemic stroke that reportedly occurred in 12/2021 . Diana was accompanied by her , Harmeet. Harmeet assisted w / history intake and answered therapist's questions given Diana's difficulties w/ communication. Diana is currently working w/ outpatient FUR BUYER to identify supports for communicating w/ others. PMH: CT Scan at [facility] 12/17/21 = 1. Acute or subacute cerebral ischemia/infarct in the left temporoparietal lobe. 2. Suspect high-grade stenosis or occlusion of a short segment of left M1 segment of the MCA; diminished flow in the left MCA territory. 3. 50% stenosis at origin of the left internal carotid artery; 40% stenosis at origin of the right internal carotid artery origin. 4. No significant disease in cervical vertebral arteries. Medical History significant for HTN and cranioectomy. 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 - Subjective Identification Type Name Identification Reconciled With Medical Record Observations Diana was accompanied by , Harmeet, and mother-in- law to OT treatment session; Diana worked w/ [employer] on x 1 occasion thus far. Patient Expectation/Goals R UE rehabilitation Patient/Caregiver Compliance with Home Good Exercise Program - Objective Objective Measurements Please refer to below for progress towards meeting established OT goals: Short Term Goals 1. Patient will present with improved active range of motion of the right upper extremity. 1a. Patient will demonstrate 10 degrees active right elbow flexion. 05/31/22 = 10 degrees observed w/ moving R UE in kp pattern w/ compensatory strategies. Usp Goals 1. Patient will be modified independent with execution of right upper extremity home exercise program with support of spouse, family, friends, utilizing provided written and visual instructions from therapist. = 50% met - Treatment 1 Descriptor Tone management. EOM hand WB; trunk flex/ext w/ hand positioned at mat level w/ dycem. 2 x 10. EOM hand WB; hand positioned posterior to hip. Weight shifting forward < -> back. 2 x 10. s-s at EOM w/ holding onto B handles of w/c. Forward <-> back and L <-> R weight shift. 3 x 10. EOM L <-> R scoot. 1 x 10. s-s in chair w/ bilateral arm rests. 1 x 10. N/A 05/17/22 = Sitting at horizontal. Elbow flex/ext. 2 x 10. Exercises 5 Descriptor Pendulum. Movement into kp pattern. Blocking of UE provided by therapist for safety reasons. 4 Descriptor Self-ROM. Clasped hands. Elbow flex/ext. Functional reach. 2 x 10. 3 Descriptor Seated. Sh elevation. 2 x 10. Facilitated by therapist. Scapular retraction/ protraction. 3 x 10. Facilitated by therapist. Elbow flexion. 3 x 10. Facilitated by therapist/ muscle tapping. PNF. Executed by therapist. 2 x 10. N/A 05/10/22 Sh adduction. 2 x 10. Facilitated by therapist. Forearm pronation. 2 x 10. Facilitated by therapist. Placement of L hand on stomach . 2 x 10. Facilitated by therapist. 1 Descriptor Supine cane exercises. Elbow flexion/ext. 2 x 10. Chest press. 2 x 10. Sh flex. 2 x 10. - Assessment Assessment of Improvement Caregiver instruction on home use of Saebo unit for facilitation of elbow flex. All questions were answered; recommended daily use/5 days per week. Will follow-up w/ PT for LE recommendations. Able to facilitate elbow flexion more easily in supine of the R UE w/ muscle tapping compared to previous sessions. Trialed Welsh e-stim, intensity 37, 10/10 cycle, for facilitation of elbow extension in standing x 5 minutes. Slight sh elevation noted when attempting to execute scapular pinches R; this is a slight improvement as well. Improving posture in standing noted w/ active weight bearing at TT w/ use of dycem. Overall, good session. Diana would likely benefit from skilled outpatient OT to address right upper extremity ROM, right upper extremity positioning, as well as provide education ( modifications/techniques) to support Diana's ability to engage in meaningful activities in a variety of environments. Given insurance limitations recommend reducing frequency to 1 x every 3 weeks to conserve visits/ overall length of treatment. Welsh e-stim used to facilitate elbow flexion x 10 minutes total; 10/10 cycle; 40 intensity; use of 1# ankle weight x 10 minutes. Skin intact pre- and post- treatment. Overall, good session. Diana would likely benefit from skilled outpatient OT to address right upper extremity ROM, right upper extremity positioning, as well as provide education ( modifications/techniques) to support Diana's ability to engage in meaningful activities in a variety of environments. Home Exercise Program 07/12/22 = Instructed in use of home Saebo unit; Program #2 Long Contraction UE Program w/ intensity of 25 to facilitate elbow flexion. Rec daily w/ frequency of up to 5 days. 06/14/22 = Rec L <-> R scoot to encourage WB into R hand. Cont w/ weight bearing in sitting/standing and wrist in ext as tolerated. - Plan Therapy Recommendations Continue with Current Program, Advance per Rehabilitation Protocol Additional Therapy Recommendations Monitor insurance limitations
--- NOTE | 2022-08-02 16:00 | OT.OP.TRT ---
Visit Care Team Role Provider Type VENKATA Frey Family Provider Advanced Electrical Manufacturing Technician Primary Care Provider Specialty: Family Practice Address: [address] [place] [address], [facility], [place], [address] Email: [email or web address] Jacinta Diggs MD Attending Provider Non-Staff Referring Provider Specialty: Medical Address: [address] [place], [address] Email: Occupational Therapy Treatment Note OT Outpatient Treatment Note - Adult Start: 03/09/22 10:18 Freq: Status: Active Protocol: Document 08/02/22 16:00 AMS (Rec: 08/03/22 13:12 AMS [id number]) OT Outpatient Adult Treatment Note Session Time Visit Start Time 10:45 Visit Stop Time 11:40 Total Visit Minutes 55 Visit Information Visit Number 16 Plan of Care Dates 05/31/22 - 08/23/22 Insurance Information [employer] OT; Max 45 Combined PT /OT/COVERING MACHINE TENDER Setting Treatment Setting Outpatient Care Visit Type Note Type Treatment Note General Information General Information Diana is a 52 year-old right hand dominant female referred by her PCP, VENKATA Frey, to outpatient OT secondary to ischemic stroke that reportedly occurred in 12/2021 . Diana was accompanied by her , Harmeet. Harmeet assisted w / history intake and answered therapist's questions given Diana's difficulties w/ communication. Diana is currently working w/ outpatient COVERING MACHINE TENDER to identify supports for communicating w/ others. PMH: CT Scan at [facility] 12/17/21 = 1. Acute or subacute cerebral ischemia/infarct in the left temporoparietal lobe. 2. Suspect high-grade stenosis or occlusion of a short segment of left M1 segment of the MCA; diminished flow in the left MCA territory. 3. 50% stenosis at origin of the left internal carotid artery; 40% stenosis at origin of the right internal carotid artery origin. 4. No significant disease in cervical vertebral arteries. Medical History significant for HTN and cranioectomy. 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 - Subjective Identification Type Name Identification Reconciled With Medical Record Observations Diana was accompanied by , Harmeet, to OT treatment session. Report of use of home e-stim unit regularly ( not on a daily basis at this time). Patient Expectation/Goals R UE rehabilitation Patient/Caregiver Compliance with Home Good Exercise Program - Objective Objective Measurements Please refer to below for progress towards meeting established OT goals: Short Term Goals 1. Patient will present with improved active range of motion of the right upper extremity. 1a. Patient will demonstrate 10 degrees active right elbow flexion. 08/02/22 = 40 degrees observed w/ moving R UE in kp pattern w/ compensatory strategies. Senior Care Goals 1. Patient will be modified independent with execution of right upper extremity home exercise program with support of spouse, family, friends, utilizing provided written and visual instructions from therapist. = 50% met - Treatment 1 Descriptor Tone management. EOM hand WB; trunk flex/ext w/ hand positioned at mat level w/ dycem. 2 x 10. EOM hand WB; hand positioned posterior to hip. Weight shifting forward < -> back. 2 x 10. s-s at EOM w/ holding onto B handles of w/c. Forward <-> back and L <-> R weight shift. 3 x 10. EOM L <-> R scoot. 1 x 10. s-s in chair w/ bilateral arm rests. 1 x 10. N/A 05/17/22 = Sitting at horizontal. Elbow flex/ext. 2 x 10. Exercises 5 Descriptor Pendulum. Movement into kp pattern. Blocking of UE provided by therapist for safety reasons. 4 Descriptor Self-ROM. Clasped hands. Elbow flex/ext. Functional reach. 2 x 10. 3 Descriptor Seated. Sh elevation. 2 x 10. Facilitated by therapist. Scapular retraction/ protraction. 3 x 10. Facilitated by therapist. Elbow flexion. 3 x 10. Facilitated by therapist/ muscle tapping. PNF. Executed by therapist. 2 x 10. N/A 05/10/22 Sh adduction. 2 x 10. Facilitated by therapist. Forearm pronation. 2 x 10. Facilitated by therapist. Placement of L hand on stomach . 2 x 10. Facilitated by therapist. 2 Descriptor UE Range of Motion Exercise Machines. UBE x 9 minutes w/ R glove to support maintenance of direct support specialist. Arm pulleys x 4 minutes. Max phys assist to maintain R direct support specialist provided by therapist. 1 Descriptor Supine cane exercises. Elbow flexion/ext. 2 x 10. Chest press. 2 x 10. Sh flex. 2 x 10. - Assessment Assessment of Improvement Increasing tone of R UE into flexor pattern; increased elbow flexion w/ permitted movement into kp pattern and use of compensatory strategies (observed 40 degrees flexion). (-) AROM observed w/ blocking/isolation of movement pattern provided by therapist. (-) active spontaenous incorporation w/ scooting to R at EOM. (+) response to larger UBE w/ observed tolerance of R velcro glove to assist w/ maintenance of grasp. (+) reported execution of home exercise program, including use of personal e-stim unit. Overall, good session. Diana would likely benefit from skilled outpatient OT to address right upper extremity ROM, right upper extremity positioning, as well as provide education ( modifications/techniques) to support Diana's ability to engage in meaningful activities in a variety of environments. Given insurance limitations recommend reducing frequency to 1 x every 3 weeks to conserve visits/ overall length of treatment. [place] e-stim used to facilitate elbow flexion x 10 minutes total; 10/10 cycle; 40 intensity; use of 1# ankle weight x 10 minutes. Skin intact pre- and post- treatment. Overall, good session. Diana would likely benefit from skilled outpatient OT to address right upper extremity ROM, right upper extremity positioning, as well as provide education ( modifications/techniques) to support Diana's ability to engage in meaningful activities in a variety of environments. Home Exercise Program 07/12/22 = Instructed in use of home Saebo unit; Program #2 Long Contraction UE Program w/ intensity of 25 to facilitate elbow flexion. Rec daily w/ frequency of up to 5 days. 06/14/22 = Rec L <-> R scoot to encourage WB into R hand. Cont w/ weight bearing in sitting/standing and wrist in ext as tolerated. - Plan Therapy Recommendations Continue with Current Program, Advance per Rehabilitation Protocol Additional Therapy Recommendations Monitor insurance limitations
--- NOTE | 2022-08-23 13:35 | OT.OPPN ---
Current Diagnoses Cerebral infarction, unspecified (08/23/22) Other lack of coordination (08/23/22) Weakness (08/23/22) OT Progress Note OT Outpatient Treatment Note - Adult Start: 03/09/22 10:18 Freq: Status: Active Protocol: Document 08/23/22 13:16 AMS (Rec: 08/23/22 13:34 AMS [id number]) OT Outpatient Adult Treatment Note Session Time Visit Start Time 10:45 Visit Stop Time 11:40 Visit Information Visit Number 17 Plan of Care Dates 08/23/22 - 11/15/22 Insurance Information [employer] OT; Max 45 Combined PT /OT/MYSQL DATABASE DEVELOPER Setting Treatment Setting Outpatient Care Visit Type Note Type Progress Note General Information General Information Diana is a 52 year-old right hand dominant female referred by her PCP, VENKATA Frey, to outpatient OT secondary to ischemic stroke that reportedly occurred in 12/2021 . Diana was accompanied by her , Harmeet. Harmeet assisted w / history intake and answered therapist's questions given Diana's difficulties w/ communication. Diana is currently working w/ outpatient MYSQL DATABASE DEVELOPER to identify supports for communicating w/ others. PMH: CT Scan at [facility] 12/17/21 = 1. Acute or subacute cerebral ischemia/infarct in the left temporoparietal lobe. 2. Suspect high-grade stenosis or occlusion of a short segment of left M1 segment of the MCA; diminished flow in the left MCA territory. 3. 50% stenosis at origin of the left internal carotid artery; 40% stenosis at origin of the right internal carotid artery origin. 4. No significant disease in cervical vertebral arteries. Medical History significant for HTN and cranioectomy. 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 - Subjective Identification Type Name Identification Reconciled With Medical Record Observations Diana was accompanied by , Harmeet, to OT treatment session. Report of use of home e-stim unit regularly ( not on a daily basis at this time). Patient Expectation/Goals R UE rehabilitation Patient/Caregiver Compliance with Home Good Exercise Program - Objective Objective Measurements Please refer to below for progress towards meeting established OT goals: Short Term Goals 1. Patient will present with improved active range of motion of the right upper extremity. 1a. Patient will demonstrate 50 degrees active right elbow flexion. 08/23/22 = GOAL UPGRADED GOALS MET 40 degrees active elbow flex; while supine w/ blocking. *MET 08/23/22 Halfway Goals 1. Patient will be modified independent with execution of right upper extremity home exercise program with support of spouse, family, friends, utilizing provided written and visual instructions from therapist. 08/23/22 = 50% met; upgraded HEP - Treatment 1 Descriptor Tone management. EOM hand WB; trunk flex/ext w/ hand positioned at mat level w/ dycem. 2 x 10. EOM hand WB; hand positioned posterior to hip. Weight shifting forward < -> back. 2 x 10. N/A 05/17/22 = Sitting at horizontal. Elbow flex/ext. 2 x 10. Exercises 5 Descriptor Pendulum. Movement into kp pattern. Blocking of UE provided by therapist for safety reasons. 4 Descriptor Self-ROM. Clasped hands. Elbow flex/ext. Functional reach. 2 x 10. 3 Descriptor Seated. Sh elevation. 2 x 10. Scapular retraction/ protraction. 2 x 10. Facilitated by therapist. Elbow flexion. 3 x 10. Facilitated by therapist/ muscle tapping. PNF. Executed by therapist. 2 x 10. N/A 05/10/22 Sh adduction. 2 x 10. Facilitated by therapist. Forearm pronation. 2 x 10. Facilitated by therapist. Placement of L hand on stomach . 2 x 10. Facilitated by therapist. 2 Descriptor UE Range of Motion Exercise Machines. UBE x 8 minutes w/ R glove to support maintenance of typewriter assembler. 1 Descriptor Supine cane exercises. Elbow flexion/ext. 2 x 10. Chest press. 2 x 10. Sh flex. 2 x 10. - Assessment Assessment of Improvement Increased tone of the R UE into typical kp pattern has been observed [id number] certification period; Diaan has made some gains with active R elbow flexion with blocking/ environmental supports. She demonstrates (+) safety awareness relative to the R UE , including positioning of the distal UE in lap w/ transitional functional movements and has not been observed to sit on the hand or permit the hand to fall between leg and w/c. Diana reports (+) carry-over of R UE exercises with assistance from an additional caregiver, Madonna, to support execution of exercises 2 times a week. The family has invested in personal home e-stim unit and have predominantly been utilizing the Sa[employer] Long Contraction UE program to facilitate elbow flexion. They were shown e-stim pad placement in today's treatment session to facilitate wrist/ digit flexion. Diana demonstrates full extension of all digits of the R hand and is beginning to demonstrate trace flexion of the digits of the hand, as well as positioning of the hand in slight flexion/digit flexion when moving the arm into typical flexor pattern. Diana would likely benefit from skilled outpatient OT to address right upper extremity ROM, right upper extremity positioning, as well as provide education ( modifications/techniques) to support Diana's ability to engage in meaningful activities in a variety of environments. Given insurance limitations recommend reducing frequency to 1 x every 3 weeks to conserve visits/ overall length of treatment. Iranian e-stim used to facilitate elbow flexion x 10 minutes total; 10/10 cycle; 40 intensity; use of 1# ankle weight x 10 minutes. Skin intact pre- and post- treatment. Overall, good session. Diana would likely benefit from skilled outpatient OT to address right upper extremity ROM, right upper extremity positioning, as well as provide education ( modifications/techniques) to support Diana's ability to engage in meaningful activities in a variety of environments. Home Exercise Program 08/23/22 = Instructed in pad placement for facilitation of wrist/digit flexion w/ clinic' s equipment. 07/12/22 = Instructed in use of home Saebo unit; Program #2 Long Contraction UE Program w/ intensity of 25 to facilitate elbow flexion. Rec daily w/ frequency of up to 5 days. 06/14/22 = Rec L <-> R scoot to encourage WB into R hand. Cont w/ weight bearing in sitting/standing and wrist in ext as tolerated. - Plan Therapy Recommendations Continue with Current Program, Advance per Rehabilitation Protocol Additional Therapy Recommendations Monitor insurance limitations Comment 12 weeks Comment 1 x a wk vs 1 x every 2 wks vs 1 x every 3 wks given insurance limitations Therapeutic Contents Active Range of Motion, Adaptive Equipment Education, Client Education,Functional Activities,Home Exercise Program,Joint Protection, Manual Therapy,Education, Neurodevelopment Treatment, Neuromuscular Re-Education, Self-Care,Therapeutic Activities,Therapeutic Exercises,Modalities Modalities As Needed,As Prescribed Additional Types of Modalities Heat/Ice/Ultrasound/E-stim/ Contrast/Paraffin If you are in agreement with this Plan of Care, please return a signed and dated copy. I have reviewed this Plan of Care and certify that the skilled therapy services above are required to meet the patient?s needs. Physician Signature Date Printed Name and Credentials Clinical Instructor Signature Printed Name and Credentials
--- NOTE | 2022-11-16 08:14 | OT.OP.DC ---
Visit Care Team Role Provider Type VENKATA Frey Family Provider Advanced Stopping Builder Primary Care Provider Address: [address] [place] [address], [facility], [place], [address] Email: [email or web address] Diggs MD Attending Provider Non-Staff Referring Provider Address: [place], [address] Email: OT Outpatient OT Outpatient Adult Evaluation Start: 03/09/22 10:18 Freq: Status: Active Protocol: Document 03/09/22 10:19 AMS (Rec: 03/09/22 11:00 AMS [id number]) General Information - Adult Visit Information Visit Number 1 Plan of Care Dates 03/09/22 - 06/01/22 Insurance Information [employer] OT; Max 45 Combined PT /OT/DISABILITY PROGRAM NAVIGATOR Session Time Visit Start Time 08:30 Visit Stop Time 09:18 Total Visit Minutes 48 Setting Treatment Setting Outpatient Care Visit Type Note Type Initial Evaluation Referral Referring Physician VENKATA Frey Identification Identification Confirmed Yes Identification Confirmed By Harmeet Previous Therapy Previous Therapy/Therapies Yes History of Therapy Inpatient PT/OT/DISABILITY PROGRAM NAVIGATOR Current Therapy/Therapies PT/DISABILITY PROGRAM NAVIGATOR Goals Short Term Goals Short Term Goals 1. Patient will present with improved active range of motion of the right upper extremity. 1a. Patient will demonstrate 10 degrees active right elbow flexion. Schedule Planning Manager Goals Schedule Planning Manager Goals 1. Patient will be modified independent with execution of right upper extremity home exercise program with support of spouse, family, friends, utilizing provided written and visual instructions from therapist. Assessment/Plan Assessment Treatment Assessment Diana is a 51 year-old right hand dominant female referred by her PCP, VENKATA Frey, to outpatient OT secondary to ischemic stroke that reportedly occurred in 12/2021 . Diana was accompanied by her , Harmeet. Harmeet assisted w / history intake and answered therapist's questions given Diana's difficulties w/ communication. Diana is currently working w/ outpatient DISABILITY PROGRAM NAVIGATOR to identify supports for communicating w/ others. PMH: CT Scan at [facility] 12/17/21 = 1. Acute or subacute cerebral ischemia/infarct in the left temporoparietal lobe. 2. Suspect high-grade stenosis or occlusion of a short segment of left M1 segment of the MCA; diminished flow in the left MCA territory. 3. 50% stenosis at origin of the left internal carotid artery; 40% stenosis at origin of the right internal carotid artery origin. 4. No significant disease in cervical vertebral arteries. Medical History significant for HTN and cranioectomy. GOALS: Patient's spouse requested focused attention to R UE rehabilitation. 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 EVALUATION FINDINGS: Diana presented in manual w/c w/ R arm rest, R AFO, helmet. Scheduled medical appointment following Monday d/t cranioectomy. History of receipt of wrist brace w/ poor tolerance. Pain Assessment Grid = 08/13 relative to R UE ( including hand) and R LE = completed by spouse, Harmeet. Nonverbal signs of pain/ discomfort of R UE noted w/ movement provided by therapist ; increased tolerance for positioning of the UE in space w/ 'rest'. R g/h sh subluxation; primarily focusing on supporting of the R UE. R Scapular winging. No guarding was observed at shoulder w/ arm supported and/ or not supported while seated in w/c. Discussed ranging/ positioning below 90 degrees in space. Mild R scapular winging w/ tendency to position w/ scapular protraction/R sh IR while seated in w/c. Passive R sh abd 90 degrees tolerated w/ positioning; passive R sh flex 90 degrees tolerated w/ positioning. Full passive R elbow flex; full passive elbow ext w/ some mild discomfort noted near end range of elbow ext approx -45 degrees. Full passive R wrist flex, wrist UD and wrist RD. Tightness of wrist/digit flexors; increased wrist ext noted w/ fingers in flexed position. Stiffness of digits of right hand; good passive extension of digits; tightness of 2-5 MPJs and intrinsic tightness noted. No AROM observed while seated in w/c of the R UE. (+) response to range of motion exercises; instructed in TT elbow flex and hor sh abd w/ use of visual. QuickDASH UE Outcome Measure Score = 80.0 (completed by , Harmeet). Harmeet is Diana's primary caregiver; the couple also receives support from family and friends. Diana is utilizing her left hand w/ self-feeding and basic self- care tasks. Diana would likely benefit from skilled outpatient OT to address right upper extremity ROM, right upper extremity positioning, as well as provide education ( modifications/techniques) to support Diana's ability to engage in meaningful activities in a variety of environments. Recommend exploring left hand function/ abilities given that Diana is utilizing her left hand for most tasks (including writing/ signature). *Monitor for distal UE swelling. Plan Length of treatment (weeks) 12 Plan of Care Start Date 03/09/22 Plan of Care End Date 06/01/22 Comment 1 x a week; 1 x every other week; insurance limitations; * *monitor Therapeutic Contents Active Range of Motion, Adaptive Equipment Education, Client Education,Cognitive Skills Development,Functional Activities,Home Exercise Program,Joint Protection, Manual Therapy,Education, Neurodevelopment Treatment, Neuromuscular Re-Education, Self-Care,Stretching/ Flexibility Activities, Therapeutic Activities, Therapeutic Exercises, Modalities Modalities As Needed,As Prescribed Types of Modalities E-Stim,Functional Stimulation (FES),T.E.N. Stimulation,TENS Placement/Application, Ultrasound Additional Types of Modalities Ice/Heat/ Functional Wrist/Hand Scan Hand Side Sensory Assessment Sensory Profile2 OT Outpatient Treatment Note - Adult Start: 03/09/22 10:18 Freq: Status: Active Protocol: Document 11/16/22 08:12 [facility] (Rec: 11/16/22 08:14 [facility] [id number]) OT Outpatient Adult Treatment Note Visit Information Visit Number 17 Plan of Care Dates 08/23/22 - 11/15/22 Insurance Information [employer] OT; Max 45 Combined PT /OT/DISABILITY PROGRAM NAVIGATOR Setting Treatment Setting Outpatient Care Visit Type Note Type Discharge Summary - Subjective Observations Diana has not been seen in the outpatient clinic for OT since 09/13/22 and POC on 02/25; thus, recommend d/c from outpatient OT at this time. Therapist to re-evaluate as deemed appropriate by PCP w/ receipt of new referral. - Objective Objective Measurements Please refer to below for progress towards meeting established OT goals: Short Term Goals GOALS MET 40 degrees active elbow flex; while supine w/ blocking. *MET 08/23/22 GOALS D/C 11/16/22 1. Patient will present with improved active range of motion of the right upper extremity. 1a. Patient will demonstrate 50 degrees active right elbow flexion. 08/23/22 = GOAL UPGRADED Schedule Planning Manager Goals Patient will be modified independent with execution of right upper extremity home exercise program with support of spouse, family, friends, utilizing provided written and visual instructions from therapist. *MET; mod independent w/ support of family/caregiver w/ HEP est as of 09/13/22 - - Assessment Assessment of Improvement Diana has not been seen in the outpatient clinic for OT since 09/13/22 and POC on 02/25; thus, recommend d/c from outpatient OT at this time. Therapist to re-evaluate as deemed appropriate by PCP w/ receipt of new referral. - Plan Therapy Recommendations Discharge from Occupational Therapy
== END 2022-11-25 09:16 ==
LOC: OT 08:30
PROVIDERS: Family Provider Internal Medicine; PCP Internal Medicine; Referring Provider Internal Medicine; Visit Provider Internal Medicine
DX: I63.9 Cerebral infarction, unspecified (principal); R27.8 Other lack of coordination; R53.1 Weakness
CPT/HCPCS: 97032; 97110; 97165; 97530

== ENCOUNTER → 2023-04-25 10:03 | Outpatient (CLI) | payer OTHER, SELFPAY ==
--- NOTE | 2023-04-25 | DI.RAD.S_ITS ---
PROCEDURE: XR CHEST 2V INDICATIONS: axillary pain left TECHNIQUE: 2 views of the chest were acquired. COMPARISON: [facility], , CHEST 2 VIEW, 12/29/2006, 12:52. FINDINGS: Surgical changes and devices: None. Lungs and pleura: Lungs are clear. No pleural effusions or pneumothorax. Mediastinum: Mediastinal contours are normal. Heart size is normal. Bones and chest wall: No suspicious bony abnormalities. Soft tissues appear unremarkable. IMPRESSION: No acute cardiopulmonary abnormality is seen. Dictated by: Krish Boss M.D. on 04/25/2023 at 10:41 Approved by: Krish Boss M.D. on 04/25/2023 at 10:42
--- NOTE | 2023-04-25 13:36 | DI.CT.S_ITS ---
PROCEDURE: CT LUNG LOW DOSE SCREENING INDICATIONS: CHEST PAIN /TOBACCO USE TECHNIQUE: Noncontrast 2.0-2.5 mm thick sections acquired from the pulmonary apices to the posterior costophrenic angles. 7 mm thick axial MIP, and 5 mm coronal and sagittal reformats were then acquired. For radiation dose reduction, the following was used: automated exposure control, adjustment of mA and/or kV according to patient size. COMPARISON: None. FINDINGS: Image quality: There is respiratory motion. Lower Neck: No enlarged lymph nodes. Thyroid: Normal CT appearance. Axillae: No enlarged lymph nodes. Chest Wall: Unremarkable. Bones: There are sclerotic bone islands in T9, T10, and T11. Lungs and Pleura: Left upper lobe anterior subpleural nodule measures 4 mm, 3/119. 2 mm left posterior upper lobe nodule, 3/53. No other suspicious mass or nodule. There is dependent interstitial thickening at both lung bases, likely due to hypoinflation. No ground-glass opacities, consolidations, or effusions. Central and peripheral airways are normal without bronchial wall thickening or bronchiectasis. Heart: Heart size is normal. No pericardial effusion. Thoracic Vessels: The aorta and pulmonary arteries demonstrate normal size. Mediastinum and Margot: No enlarged lymph nodes. Esophagus: No wall thickening. No hiatal hernia. Upper Abdomen: Visualized upper abdomen solid organs and bowel loops appear normal. IMPRESSION: Small, non suspicious left upper lobe lung nodules. LUNG-RADS two; Continue annual low-dose chest CT screening as long as the patient meets established criteria. Clinically Significant Non-pulmonary Findings: None. Dictated by: Lacey Reyes M.D. on 04/25/2023 at 18:44 Approved by: Lacey Reyes M.D. on 04/25/2023 at 18:49
== END ==
PROVIDERS: Family Provider Internal Medicine; PCP Internal Medicine; Referring Provider Internal Medicine; Visit Provider Internal Medicine
DX: F17.210 Nicotine dependence, cigarettes, uncomplicated (principal); Z12.2 Encounter for screening for malignant neoplasm of respiratory organs; R91.8 Other nonspecific abnormal finding of lung field; M79.622 Pain in left upper arm
CPT/HCPCS: 71046; 71271

== ENCOUNTER → 2024-07-18 08:12 | Outpatient (CLI) | payer MEDICARE, SELFPAY ==
--- NOTE | 2024-07-18 08:14 | DI.MG.S_ITS ---
MM screening mammo BI: 07/18/2024. BI-RADS: 1 CLINICAL: 54-year old female for bilateral screening mammogram. Tyrer-Cuzick lifetime risk of 13.5%. No personal or first-degree family history of breast cancer. PRIOR EXAMS 01/02/2021, 12/28/2019, 07/25/2018, 07/15/2017, 07/11/2016, 07/09/2015, 07/03/2015. MAMMOGRAPHY TECHNIQUE: 2D and 3D (tomosynthesis) digital mammographic views obtained, with additional images as needed for full coverage. Current study was also evaluated with a Computer Aided Detection (CAD) system. DENSITY D. The breasts are extremely dense, which lowers the sensitivity of mammography. MAMMOGRAPHY FINDINGS Bilateral: No suspicious mass, asymmetry, microcalcification, or other abnormality seen. IMPRESSION: * No evidence of malignancy. RECOMMENDATIONS Bilateral * Annual screening mammography. OVERALL ASSESSMENT CATEGORY BI-RADS-1: Negative. The [employer] recommends annual screening mammography beginning at age 40 for women with average risk of breast cancer. ELECTRONICALLY SIGNED: Katty Saenz M.D. on 07/22/2024 at 01:12:14 AM PT Interpreting Station ID: [id number]
--- NOTE | 2024-07-18 08:15 | DI.CT.S_ITS ---
PROCEDURE: CT CHEST WO CON INDICATIONS: LUNG NODULE TECHNIQUE: Noncontrast 2.0-2.5 mm thick sections acquired from the pulmonary apices to the posterior costophrenic angles. 7 mm thick axial MIP, and 5 mm coronal and sagittal reformats were then acquired. For radiation dose reduction, the following was used: automated exposure control, adjustment of mA and/or kV according to patient size. COMPARISON: None. FINDINGS: Image quality: Diagnostic. Lower Neck: No enlarged lymph nodes. Thyroid: No thyroid nodules which require sonographic follow up, per consensus guidelines. Axillae: No enlarged lymph nodes. Chest Wall: Unremarkable. Bones: Unremarkable. Lungs and Pleura: No pneumothorax or pleural effusions. No consolidation or suspicious nodules. A previously identified stable 3 mm anterior left upper lobe nodule is again seen centered on series 3, image 100. No new nodule has developed. Heart: Heart size is normal. No pericardial effusion. Thoracic Vessels: The aorta and pulmonary arteries demonstrate normal size. Mediastinum and Margot: No enlarged lymph nodes. Esophagus: No wall thickening. No hiatal hernia. Upper Abdomen: Visualized upper abdomen solid organs and bowel loops appear normal. IMPRESSION: No suspicious pulmonary nodules. LUNG-RADS 1; continued annual screening, if eligible. Clinically Significant Non-pulmonary Findings: None. Dictated by: Yuan Guevara M.D. on 07/18/2024 at 12:19 Approved by: Yuan Guevara M.D. on 07/18/2024 at 12:21
== END ==
PROVIDERS: Family Provider Internal Medicine; PCP Registered Nurse; Referring Provider Registered Nurse; Visit Provider Registered Nurse
DX: Z12.31 Encounter for screening mammogram for malignant neoplasm of breast (principal); R92.333 Mammographic heterogeneous density, bilateral breasts
CPT/HCPCS: 71250; 77063; 77067